=== PATIENT | female | born 1960 | race Caucasian/White ===

== ENCOUNTER 2024-10-12 08:58 | Outpatient (AMB) | payer MEDICARE, SELFPAY ==
--- NOTE | 2024-10-12 09:01 | A.OFFVIS_ITS ---
Vital Signs 10/12/24 09:03 Height 5 ft 7 in Weight 186 lb 2 oz BMI 29.1 BP 128/76 Blood Pressure Location Lt brachial Position Sitting Pulse 81 Pulse Source Pulse Oximeter Pulse Oximetry (%) 99 Oxygen Delivery Method Room Air Intake Visit Reasons: ENP - Snoring Intake Note: Patient presents to the office today as a new patient visit for snoring. Pt states she is overall feeling well. Allergies No Known Allergies Allergy (Verified 10/12/24 09:04) HPI Comments Details: 64 year old female referred to us by Virginia Shields her pcp's office for an evaluation of sleep apnea She had a visiting nurse come into the home and noticed she had an abnormal heart rate, in the 50s. Goes to bed at 11pm wakes up at 7am with 2 bathroom breaks. She had an EKG, and 24hour holter monitor over night, and both normal. She snores at night per and has a difficult time falling asleep, will take a benadryl with tylenol. She also takes zyrtec for allergies, with very dry eyes has to put eye drops in when she wakes up for the bathroom. Bruxism, has a mouth gaurd that is old. L. knee pain, tried pt, cortisone shots and now pending consult for TKR. Knees get frozen and will feel immobile. Lumbar pain due to L4/L5 fracture, she sees a chiropractor. Denies parasomnias. RLS symptoms denies. Morning headaches denies. Memory is stable, will occasionally forgets names, has to write everything down. Mood is stable, her mom passed recently. She does not smoke, has alcohol occasionally and her diet is stable. She has started biking 5-10 min daily. HST and Labs 3 month f/u Left eye line and flashes with floaters, 3x a week, during the day can last 1hour, eyes feel gritty, tear mildly, irritable pain. [facility] Medical History Hypothyroidism (acquired) Arthritis of knee Asthma Actinic keratosis Alopecia areata Age related osteoporosis Herpes simplex antibody positive Anorectal polyp Subclinical hypothyroidism Hypercholesteremia Hemorrhoid Surgical History History of radial keratotomy H/O knee surgery H/O colonoscopy H/O breast biopsy Family History Mother Breast cancer Diabetes mellitus HTN (hypertension) Afib NICKY (obstructive sleep apnea) Cataract Osteoporosis SCC (spinal cord compression) Dementia Father Stroke NICKY (obstructive sleep apnea) Tumor, thyroid Glioblastoma Sister SCC (spinal cord compression) Thyroid disease Brother HTN (hypertension) Maternal Grandfather Lung cancer Paternal Grandmother Stroke Paternal Grandfather Kidney disease Maternal Aunt Colon cancer COPD (chronic obstructive pulmonary disease) Maternal Uncle Lung cancer Social History Alcohol intake: current Patient Tobacco Use Status: Never used Tobacco e-Cigarette/Vaping Use: Never Used Physical Exam Vital Signs: Last Vital Signs Pulse 81 10/12/24 09:03 BP 128/76 10/12/24 09:03 Pulse Ox 99 10/12/24 09:03 Oxygen Delivery Method Room Air 10/12/24 09:03 BMI result Body Mass Index 29.1 Const General: cooperative, comfortable and no acute distress Nutritional Appearance: overweight Orientation/consciousness: patient oriented x3 HEENT Face and sinus: Yes face symmetric Throat: Yes other ([place] score is 3) Eyes Pupils: Equal, round and reactive pupils present Neck Neck: Yes full ROM Resp Effort & Inspection: normal respiratory effort and able to speak in complete sentences Neuro Other: mild tremors UE L>R, / speech is mumbled, due to large tongue per patient General: patient oriented x3 and moves all extremities Cranial nerves: Yes Facial sensation intact/muscles of mastication intact, Yes Equal, round and reactive pupils present, Yes Normal accommodation reflex present, Yes Normal facial strength present, Yes Midline tongue present, Yes Ability to bilaterally rotate head present and Yes Ability to bilaterally elevate shoulders present Cognition (Neuro): normal cognition Gait exam (Neuro): Normal gait present Motor exam (neuro): 5/5 motor strength present throughout (Upper extremity ) and Abnormal muscle tone present (Lower Extremity 4/5 L. Extremity 3/5) Deep tendon reflexes (DTR's): Right triceps reflex intensity grade: 2+, Left triceps reflex intensity grade: 2+, Rt Biceps (C5, C6): 2+, Left biceps reflex intensity grade: 2+, Right brachioradialis reflex intensity grade: 2+, Left brachioradialis reflex intensity grade: 2+, Right patellar reflex intensity grade: 2+, Left patellar reflex intensity grade: 2+, Right ankle reflex intensity grade: 2+ and Left ankle reflex intensity grade: 2+ Psych Appearance: grossly normal Affect: normal affect Thought process: Normal thought process present Thought content: Normal thought content present Results Reviewed Results Reviewed: Labs request from [facility] in [place]. Assessment & Plan Assessment & Plan (1) Excessive daytime sleepiness: Code(s): G47.19 - Other hypersomnia Category: Medical (2) Difficulty falling asleep at night until annual giving director hours: Code(s): G47.00 - Insomnia, unspecified Category: Medical (3) Bruxism (teeth grinding): Code(s): F45.8 - Other somatoform disorders Category: Medical (4) Abnormal heart rate: Code(s): R00.9 - Unspecified abnormalities of heart beat Category: Medical Plan HST to r/o nicky Labs for excessive daytime fatigue Difficulty falling asleep discussed strategies for sleep onset, and sleep hygiene. Encouraged patient to stop benadryl otc, dries her eyes, and causes tearing. Start Ramelteon 8mg PO daily at night. Continue Melatonin 3mg -6mg po daily at night 3 hours prior to sleep. F/u in 3 months Orders: Orders RT home sleep study Today G47.19 - Other hypersomnia Ferritin Today G47.19 - Other hypersomnia Homocysteine Today G47.19 - Other hypersomnia, G47.9 - Sleep disorder, unspecified, R53.83 - Other fatigue Complete Blood Count no Diff Today G47.19 - Other hypersomnia Comprehensive Met. Panel Today G47.19 - Other hypersomnia Hemoglobin A1c Today G47.19 - Other hypersomnia Methylmalonic Acid Today G47.19 - Other hypersomnia, G47.9 - Sleep disorder, unspecified, R53.83 - Other fatigue Vitamin D 25-OH Total Today G47.19 - Other hypersomnia Vitamin B12 and Folate Today G47.19 - Other hypersomnia TSH reflex Free T4 Today G47.19 - Other hypersomnia Medications: New ramelteon (Rozerem) 8mg po daily at bedtime. 8 mg PO BEDTIME 90 tabs 3RF sleep difficulties 3 months MDD 8mg G47.00 - Insomnia, unspecified Patient Instructions: Sleep Hygiene provided: set a scheduled bedtime and wake time to help regulate the circadian rhythm and balance the release of pituitary hormones. Sleep in a dark room, temperatures below 68 degrees, and no devices n bed. Limit caffeinated products 6 hours prior to bed, and limit fluids 2-4 hours prior to bed. Gentle night yoga, diffusing essential oils, and playing soft music can be relaxing. Coding Level of Care Code New Pt Level 4 (69945) Diagnoses Excessive daytime sleepiness G47.19 Difficulty falling asleep at night until annual giving director hours G47.00 Bruxism (teeth grinding) F45.8 Abnormal heart rate R00.9 Time Spent (min) 30 Comment evaluation Sleep Questionnaire Difficulty falling asleep: Yes (benadryl) Difficulty staying asleep?: No Number of arousals: 2 Snoring: Yes Witnessed apneas: No Gasping arousals: Yes Nocturia: No GERD: No Vivid dreams: Yes Acting out dreams: No Abnormal behavior in sleep: No Abnormal movements in sleep: No Morning headaches: Yes Excessive daytime sleepiness: No Daytime naps: Yes (1-2 /week, doze <10 min) Restless legs: No
[2024-10-12 09:03] VITALS: BP 128/76; PULSE 81; O2SAT 99; BMI 29.1
== END 2024-10-12 10:05 | disposition home or self-care (01) ==
LOC: HO.HSMS 08:59
PROVIDERS: PCP Internal Medicine; Visit Provider Physician Assistant Medical
DX: G47.19 Other hypersomnia (principal); G47.00 Insomnia, unspecified; F45.8 Other somatoform disorders; R00.9 Unspecified abnormalities of heart beat
CPT/HCPCS: 99204

== ENCOUNTER → 2024-10-12 08:58 | Outpatient (BNVA) | payer MEDICARE, SELFPAY | PROVIDERS: PCP Internal Medicine; Visit Provider Physician Assistant Medical | DX: F45.8 Other somatoform disorders (principal); R00.9 Unspecified abnormalities of heart beat; G47.00 Insomnia, unspecified; G47.19 Other hypersomnia | CPT/HCPCS: 99202 ==

== ENCOUNTER 2024-10-19 09:15 | Outpatient (REF) | payer MEDICARE, SELFPAY ==
--- OUTSIDE RECORDS SUMMARY | 2024-10-19 09:32 | XMS_ITS | Clinical Summary ---
Author Organization [facility] Address [address] [place] [address] Phone Care Team Providers Care Car Deliverer Name Role Phone Mahogany Molina MD Primary Care Provider [phone] Allergies No known active allergies Medications aspirin 81 mg EC tablet Take 1 tablet (81 mg total) by mouth 1 (one) time each day. Active vitamin B complex (VITAMINS B COMPLEX ORAL) Take by mouth 1 (one) time each day. Active calcium carbonate-vitami n D3 600 mg-10 mcg (400 unit) capsule Take by mouth 1 (one) time each day. Active cetirizine (ZyrTEC) 10 mg tablet Take 1 tablet (10 mg total) by mouth 1 (one) time each day. Active fluticasone propionate (FLONASE) 50 mcg/actuation nasal spray Administer 1 spray into each nostril 2 (two) times a day if needed for rhinitis or allergies. 2 Active glucosamine/sarah beth droitin/C/Juwan (GLUCOSAMINE 1500 COMPLEX ORAL) Take 1 tablet by mouth 1 (one) time each day. Active MAGNESIUM ORAL Take by mouth 1 (one) time each day. Active meloxicam (MOBIC) 15 mg tablet Take 1 tablet (15 mg total) by mouth 1 (one) time each day. 3 Active multivitamin (MULTIPLE VITAMINS ORAL) Take by mouth 1 (one) time each day. 8 Active omega-3 acid ethyl esters (LOVAZA) 1 gram capsule Take 1 capsule (1 g total) by mouth 1 (one) time each day. Active Lactobacillus acidophilus (Probiotic) 10 billion cell capsule Take by mouth 1 (one) time each day. Active valACYclovir (VALTREX) 1 gram tablet TAKE 2 TABLETS BY MOUTH 2 TIMES DAILY FOR 1 DAY ONLY 4 Active atorvastatin (LIPITOR) 10 mg tablet Take 1 tablet (10 mg total) by mouth 1 (one) time each day. 90 tablet 3 5 Active levothyroxine (SYNTHROID, LEVOTHROID) 25 mcg tablet Take 1.5 tablets (37.5 mcg total) by mouth 1 (one) time each day before breakfast. 135 tablet 3 5 Active omeprazole (PriLOSEC) [address] capsule Take 1 capsule (20 mg total) by mouth 1 (one) time each day. 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 Subclinical hypothyroidism 02/20/2023 Assessment & Plan (04/22/2024 11:48 AM EST): Orders: Thyroid stimulating hormone; Future Overweight (BMI 25.0-29.9) 05/02/2021 Osteoporosis 05/02/2021 Assessment & Plan (04/22/2024 11:48 AM EST): Orders: Basic metabolic panel; Future BD Bone Density DXA Axial Skeleton; Future Asthma 11/01/2015 Actinic keratosis 01/31/2015 Overview (01/06/2024): Actinic keratosis Hemorrhoids, external 09/27/2010 Alopecia areata 08/21/2008 Hypercholesteremia 08/02/2007 Assessment & Plan (04/22/2024 11:48 AM EST): Orders: Lipid panel with reflex to direct LDL; Future Herpes simplex virus (HSV) infection 05/05/2005 Overview (01/06/2024): IMO update Anorectal polyp 05/02/2005 Overview (01/06/2024): tubular adenoma 1998. Neg CN 2004 and 2011. Next exam indicated 2021. IMO update Encounters Date Type Department Care Team Description 09/05/2024 8:30 AM EDT Ancillary Procedure [facility] [address] [place] [address] Irregular cardiac rhythm; Snoring 08/18/2024 1:00 PM EDT Office Visit Adult Medicine [address] [address] Virginia Montiel PA Irregular cardiac rhythm (Primary Dx); Snoring from Last 3 Months Immunizations Name Administration Dates Next Due Influenza Quadravalent, MDCK , 0.5ml, preservative free (Flucelvax) 6mo and older 01/10/2019,01/15/2018,01/18/2017 Influenza trivalent, 0.5mL, preservative free (Fluarix; FluLaval; Fluzone) ages 6mo and older (Afluria) 3 years and older 12/30/2023,02/04/2022,01/15/2018,01/25 Influenza trivalent, with pr eservative (Fluzone; Afluria) 6mo and older 01/19/2023,01/03/2020,01/17/2015,12/31,01/27/2007 [employer] SARS-CoV-2 COVID-19, mRNA, LNP-S, preservative free 07/25/2021 Pneumococcal conjugate 20 va lent (Prevnar 20, PCV 20) 2mo and older 04/16/2024 Pneumococcal polysaccharide 23 valent (Pneumovax 23) 2yo and older 12/26/2015 RSV, bivalent, protein subun it RSVpreF, 0.5mL, Preservative Free (ABRYSVO) 60yo and older or 32 through 36 wks of 02/15/2024 Td Tetanus diptheria (Tdvax) 7yo and older 03/16/2017,06/18/1996 Tdap Tetanus diptheria acell ular pertussis (Boostrix; Adacel) 7yo and older 07/24/2006 Zoster recombinant (Shingrix ) 19yo and older 09/14/2018,05/18/2018 Surgical History Surgery Date Site/Laterality Comments COLONOSCOPY W/ BIOPSIES 08/08/1998 single diminutive rectal tubular adenoma COLONOSCOPY 12/12/2011 : no polyps OTHER SURGICAL HISTORY RADIAL KERATOTOMY KNEE SURGERY 02/2013 Left : meniscus repair BREAST BIOPSY 2000ish Right rt brst b9 BREAST BIOPSY Right benign COLONOSCOPY 08/05/2004 no polyps Medical History Medical History Date Comments Anal and rectal polyp 05/02/2005 tubular ad enoma Herpes simplex without mention of complication 0 05/05/2005 Hypercholesteremia 08/02/2007 Alopecia areata 08/21/2008 Actinic keratosis, hx of Wheezing 11/01/2015 Osteoporosis 03/2021 Arthritis of knee Hypothyroidism 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 Family History Medical History Relation Name Comments Colon cancer Aunt maternal COPD Hypertension Brother x 2 HLD Hyperthyroidism Daughter Stroke Father heart conditio n , NICKY, glioblastoma, thyroid tumor Lung cancer Maternal Grandfather Breast cancer Mother DM, HTN, AFIB, NICKY, cataract, osteoporosis, SCC, dementia Other: kidney disease Paternal Grandfather Stroke Paternal Grandmother Thyroid disease Sister x 2 SCC Lung cancer Uncle maternal Relation Name Status Comments Aunt maternal Brother x 2 Alive Daughter Father Maternal Grandfather Maternal Grandmother Mother Paternal Grandfather Paternal Grandmother Sister x 2 Alive Uncle maternal Social History Tobacco Use Types Packs/Day Years Used Date Smoking Tobacco: Never Smokeless Tobacco: Never Tobacco Cessation:Counseling Given: Not Answered Alcohol Use Standard Drinks/Week Comments Yes 2 (1 standard drink = 0.6 oz pur e alcohol) Housing Instability Answer Date Recorde d Are you worried that in the next 2 months you may not have stable housing? No 06/24/2024 Food Access & Nutrition Answer Date Rec orded Do you have access to a vari ety of food including fruits and vegetables? Yes 06/24/2024 Access to Healthcare Answer Date Record ed Within the last 3 months, ho w many times did you visit the emergency department for your medical care? 0 06/24/2024 Health Literacy Answer Date Recorded How often do you need to hav e someone help you when you read instructions, pamphlets, or other written material from your doctor or pharmacy? Never 06/24/2024 Caregiver: How often do you need to have someone help you when you read instructions, pamphlets, or other written material from your doctor or pharmacy? Not on file 06/24/2024 Financial Risk Answer Date Recorded How hard is it for you to pa y for the very basics like food, housing, medical care, and air conditioning / heating? Not very hard 06/24/2024 Transportation Answer Date Recorded Has the lack of transportati on kept you from meetings, work, or from getting things needed for daily living? No Has the lack of transportati on kept you from medical appointments or from getting medications? No 06/24/2024 Social Isolation Answer Date Recorded How often do you feel lonely or isolated from th ose around you? Never 06/24/2024 Food Risk Answer Date Recorded Within the past 12 months we worried whether our food would run out before we got money to buy more. Never true 06/24/2024 Within the past 12 months th e food we bought just didn't last and we didn't have money to get more. Never true 06/24/2024 Dependent Care Answer Date Recorded Do you need help finding or paying for care for your loved ones. For example, director child or elderly care for an older adult? No 06/24/2024 Education Answer Date Recorded Do you think completing more education or training, like finishing a GED, going to college, or learning a trade, would be helpful for you? No 06/24/2024 Employment and Income Answer Date Recor ded During the last four weeks, have you been actively looking for work? No 06/24/2024 Living Situation Answer Date Recorded What is your living situation? 0 06/24/2024 Comments No Sex and Gender Information Value Date Recorded Sex Assigned at Not on file Legal Sex Female 8:59 PM EST Gender Identity Not on file Sexual Orientation Not on file Obstetrics History Para Term AB IAB SAB Ectopic Multiple Livin g Live Births 1 1 1 1 1 Date Outcome GA Total Labor Labor/2nd/3rd Weight Sex Type Anes PTL Larisa A1 A5 Name Clin Term 40w 0d Vag-S pont None Living Delivery Location:[facility] Last Filed Vital Signs Vital Sign Reading Time Taken Comments Blood Pressure 104/76 08/18/2024 12:58 PM EDT Pulse 74 08/18/2024 12:58 PM EDT Temperature 36.3 C (97.3 F) 08/18/2024 12:58 PM EDT Respiratory Rate 14 08/18/2024 12:58 PM EDT Oxygen Saturation 98% 08/18/2024 12:58 PM EDT Inhaled Oxygen Concentration - - Weight 83.9 kg (185 lb) 08/18/2024 12:58 PM EDT Height 170.2 cm (5' 7 ) 08/18/2024 12:58 PM EDT Body Mass Index 28.98 08/18/2024 12:58 PM EDT Plan of Treatment Upcoming Encounters Date Type Department Care Team (Late st Contact Info) Description 10/27/2024 2:15 PM EDT Office Visit Adult Medicine [facility] [address] [place] [address] Mahogany Molina MD [address] [place] [address] Health Maintenance Due Date Last Done Comments Cervical Cancer Screening: Pap Smear 01/18/2024 01/17/2021 COVID-19 Vaccine (8 - Pfizer risk 2023- season) 2024 01/12/2024, 01/07/2023, 01/20/2022, Additional history exists Influenza Vaccine (#1) 2024 , 01/19/2023, 02/04/2022, Additional history exists Falls Risk Assessment 04/22/2025 04/22/2024 Medicare Annual Wellness Visit 04/22/2025 04/22/2024 Depression Screening 06/24/2025 06/24/2024 Social Influencers of Health Screening 06/24/2025 06/24/2024 Breast Cancer Screening 04/29/2026 04/29/19, 04/27/2023, 03/25/2022, Additional history exists DTaP,Tdap,and Td Vaccines (4 - Td or Tdap) 03/16/2027 03/16/2017, 07/24/2006, 06/18/1996 Colorectal Cancer Screening: Colonoscopy 03/20/2027 03/20/2022 Cholesterol Screening (Lipid Panel) 04/26/2029 04/26/2024, 07/09/2023 Osteoporosis Screening (Bone Density Screening) 05/10/2034 05/10/2024, 05/20/2022, 03/28/2021 Hepatitis C Screening Addressed 12/21/2012 Overri dden with the intention of not completing the topic Zoster Vaccines Completed 09/14/2018, 05/18/2018 RSV Immunization Adult Patients Completed 02/15/2024 Pneumococcal Vaccine: 50+ Years Completed 04/16/2024, 12/26/2015 Pneumococcal Vaccine: Pediatrics (0 to 5 Years) and At-Risk Patients (6 to 64 Years) Completed 04/16/2024, 12/26/2015 HIB Vaccines Aged Out No longer eligi ble based on patient's age to complete this topic HPV Vaccines Aged Out No longer eligi ble based on patient's age to complete this topic Hepatitis A Vaccines Aged Out No long er eligible based on patient's age to complete this topic Hepatitis B Vaccines Aged Out No long er eligible based on patient's age to complete this topic IPV Vaccines Aged Out No longer eligi ble based on patient's age to complete this topic MMR Vaccines Aged Out No longer eligi ble based on patient's age to complete this topic Meningococcal ACWY Vaccine Aged Out N o longer eligible based on patient's age to complete this topic Meningococcal B Vaccine Aged Out No l onger eligible based on patient's age to complete this topic RSV Immunization Patients Under 20 months Aged Out No longer eligible based on patient's age to complete this topic Varicella Vaccines Aged Out No longer eligible based on patient's age to complete this topic Procedures Procedure Name Priority Date/Time Associated Diagnosis Comments CARDIAC HOLTER MONITOR (REPORT GENERATED IN HOUSE) Routine 09/05/2024 8:20 AM EDT Irregular cardiac rhythm Snoring ECG 12-LEAD Routine 08/18/2024 4:34 PM EDT Irregular cardiac rhythm BD BONE DENSITY DXA AXIAL SKELETON Routine 05/10/2024 9:09 AM EST Osteoporosis, unspecified osteoporosis type, unspecified pathological fracture presence MG MAMMO DIGITAL SCREENING W TONY BILAT Routine 04/29/2024 9:01 AM EST Encounter for screening mammogram for breast cancer LIPID PANEL WITH REFLEX TO DIRECT LDL Routine 04/26/2024 7:50 AM EST Hypercholesteremia PAP SMEAR Routine 01/17/2021 from Last 3 Months or Most Recently Relevant to Health Maintenance Results * CARDIAC HOLTER MONITOR (REPORT GENERATED IN HOUSE) (09/05/2024 8:20 AM EDT) Anatomical Region Laterality Modality Cardiac Diagnost ic Narrative 09/06/2024 3:02 PM EDT Unremarkable Holter monitor [facility]ST[facility]ING DEPARTMENT [address] [facility], [address] [address] TEL: FAX: Type of test: 24 hour Holter Monitor Date of test: 09/05/24 Ordering provider: ASHLEY Jensen Reason for Test: Irregular Rhythm [employer] Findings: 1: Normal Sinus Rhythm. 2: Rare PACs with one atrial pair. Rare PVCs. 3: No pauses noted. Longest R-R 1.2 sec. 4: Diary returned with no symptoms noted. Impression: Normal sinus rhythm with no significant arrhythmias or bradycardia noted. us Virginia RAMIREZ [facility] PROCEDURE S Final Result * ECG 12 lead (08/18/2024 4:34 PM EDT) us Virginia RAMIERZ ECG ORDERABLES Final Result * BD Bone Density DXA Axial Skeleton (05/10/2024 9:09 AM EST) Anatomical Region Laterality Modality Wrist, Hip, L-spine Bone Densito metry 05/11/2024 12:0 4 PM EST Impressions 05/11/2024 12:05 PM EST 1. Osteopenia. 2. FRAX analysis yields a 10-year probability of major osteoporotic fracture of 18.7% and a 10-year probability of hip fracture of 1.5%. Code 43031 -------- FINAL REPORT -------- Dictated By: Herb Iniguez Dictated Date: 05/11/2024 12:04 ET Assigned Physician: Herb Iniguez Reviewed and Electronically Signed By: Herb Iniguez Signed Date: 05/11/2024 12:05 ET Workstation ID: [id number] Transcribed By: Self Edit Transcribed Date: 05/11/2024 12:04 ET Narrative 05/11/2024 12:05 PM EST HISTORY: The patient is a 64-year-old postmenopausal female with clinical concern for metabolic bone disease. FINDINGS: Dual energy x-ray absorptiometry of the lumbar spine and femurs is performed. The mean bone mineral density at L1-L4 is 0.898 gm/cm2 which is 76% of that of young normals and 83% of that of age matched controls. This yields a T-score of -2.3 and a Z-score of -1.5 which is diagnostic of osteopenia. The mean bone mineral density of the femurs bilaterally is 0.857 gm/cm2 which is 85% of that of young normals and 93% of that of age matched controls. This yields a T-score of -1.2 and a Z-score of -0.5 which is diagnostic of osteopenia. Procedure Note Herb Iniguez MD - 05/11/2024 HISTORY: The patient is a 64-year-old postmenopausal female with clinicalconcern for metabolic bone disease. FINDINGS: Dual energy x-ray absorptiometry of the lumbar spine and femursis performed. The mean bone mineral density at L1-L4 is 0.898 gm/cm2 whichis 76% of that of young normals and 83% of that of age matched controls.This yields a T-score of -2.3 and a Z-score of -1.5 which is diagnostic ofosteopenia. The mean bone mineral density of the femurs bilaterally is 0.857 gm/bd5wzrut is 85% of that of young normals and 93% of that of age matchedcontrols. This yields a T-score of -1.2 and a Z-score of -0.5 which isdiagnostic of osteopenia. IMPRESSION: 1. Osteopenia. 2. FRAX analysis yields a 10-year probability of major osteoporoticfracture of 18.7% and a 10-year probability of hip fracture of 1.5%. Code 92673 -------- FINAL REPORT -------- Dictated By: Herb Iniguez Dictated Date: 05/11/2024 12:04 ET Assigned Physician: Herb Iniguez Reviewed and Electronically Signed By: Herb Iniguez Signed Date: 05/11/2024 12:05 ET Workstation ID: [id number] Transcribed By: Self Edit Transcribed Date: 05/11/2024 12:04 ET us Mahogany Molina MD IMG DXA PROCEDURES Final Result * MG Mammo Digital Screening w Tony bilat (04/29/2024 9:01 AM EST) Anatomical Region Laterality Modality Breast Bilateral Mammography 04/29/2024 9:13 AM EST Impressions 04/29/2024 9:18 AM EST No mammographic evidence of malignancy. A negative mammogram in the presence of a clinically suspicious palpable abnormality does not preclude the possibility of malignancy or alter the indications for biopsy. PQRI CPT II 3342F Code 07210, 69306 PQRI 225 CPT II 7025F TISSUE DENSITY: There are scattered areas of fibroglandular density. (BI-RADS category B) IMPRESSION: Benign. BI-RADS CATEGORY: 2 - BENIGN RECOMMENDATION: Screening bilateral mammogram is recommended in 1 year. Mammo Location: [facility], [address] [place] [address] -------- FINAL REPORT -------- Dictated By: Herb Iniguez Dictated Date: 04/29/2024 09:13 ET Assigned Physician: Herb Iniguez Reviewed and Electronically Signed By: Herb Iniguez Signed Date: 04/29/2024 09:18 ET Workstation ID: [id number] Transcribed By: Self Edit Transcribed Date: 04/29/2024 09:13 ET Narrative 04/29/2024 9:18 AM EST CLINICAL: The patient is a 64 years Female presenting for routine screening mammography. COMPARISON: Most recently 04/27/2023 and most remotely 03/11/2017. TECHNIQUE: Full-field digital mammography of the breasts bilaterally consisting of tomosynthesis in MLO and CC projection is performed in the [employer] 2000-D unit. Computer aided detection utilizing the iCAD system was utilized. FINDINGS: The breasts are again seen to be composed of a combination of fatty and fibroglandular elements. A tissue marker is again present laterally in the right breast. A small group of smoothly marginated calcifications centrally in the left breast are stable and are therefore again regarded as being benign. There is no suspicious cluster of microcalcifications, mass, or area of architectural distortion. There is no skin thickening or nipple retraction. Procedure Note Herb Iniguez MD - 04/29/2024 CLINICAL: The patient is a 64 years Female presenting for routinescreening mammography. COMPARISON: Most recently 04/27/2023 and most remotely 03/11/2017. TECHNIQUE: Full-field digital mammography of the breasts bilaterallyconsisting of tomosynthesis in MLO and CC projection is performed in the[employer] 2000-D unit. Computer aided detection utilizing the [employer] was utilized. FINDINGS: The breasts are again seen to be composed of a combination offatty and fibroglandular elements. A tissue marker is again presentlaterally in the right breast. A small group of smoothly marginatedcalcifications centrally in the left breast are stable and are thereforeagain regarded as being benign. There is no suspicious cluster ofmicrocalcifications, mass, or area of architectural distortion. There isno skin thickening or nipple retraction. IMPRESSION: No mammographic evidence of malignancy. A negative mammogram in the presence of a clinically suspicious palpableabnormality does not preclude the possibility of malignancy or alter theindications for biopsy. PQRI CPT II 3342F Code 21125, 67946 PQRI 225 CPT II 7025F TISSUE DENSITY: There are scattered areas of fibroglandular density.(BI-RADS category B) IMPRESSION: Benign. BI-RADS CATEGORY: 2 - BENIGN RECOMMENDATION: Screening bilateral mammogram is recommended in 1 year. Mammo Location: [facility], [facility], [address] [place] [id number] -------- FINAL REPORT -------- Dictated By: Herb Iniguez Dictated Date: 04/29/2024 09:13 ET Assigned Physician: Herb Iniguez Reviewed and Electronically Signed By: Herb Iniguez Signed Date: 04/29/2024 09:18 ET Workstation ID: [id number] Transcribed By: Self Edit Transcribed Date: 04/29/2024 09:13 ET us Self Referral Sppl IMG BI PROCEDURES Final Resul t * (ABNORMAL) Lipid panel with reflex to direct LDL (04/26/2024 7:50 AM EST) Cholesterol 212(H) 0 - 200 mg/dL LAB CHEMISTRY METHOD 04/26/2024 10:34 AM EST [facility] Triglycerides 103 0 - 150 mg/dL LAB CHEMISTRY METHOD 04/26/2024 10:34 AM EST [facility] HDL 66 >=40 mg/dL LAB CHEMISTRY METHOD 04/26/2024 10:34 AM EST [facility] LDL Calculated 125(H) 0 - 100 mg/dL LAB CHEMISTRY METHOD 04/26/2024 10:34 AM EST [facility] VLDL Cholesterol Seng 20.6 mg/dL LAB CHEMISTRY METHOD 04/26/2024 10:34 AM EST [facility] Non HDL Chol. (LDL+VLDL) 146(H) <145 mg/dL LAB CHEMISTRY METHOD 04/26/2024 10:34 AM EST [facility] Chol/HDL Ratio 3.2 0.0 - 4.4 LAB CHEMISTRY METHOD 04/26/2024 10:34 AM EST [facility] Blood Venous blood specimen / Unknown Venipuncture / Unknown 04/26/2024 7:50 AM EST 04/26/2024 7:50 AM EST us Mahogany Molina MD LAB BLOOD ORDERABLES Final Resul t [facility] [address] [place] [address], * Pap smear (01/17/2021) 01/17/2021 Narrative HISTORICAL TESTING LAB RESULTING AGENCY - 01/31/2021 1:20 PM EDT [id number] THINPREP PAP, IMAGED: NEGATIVE FOR SQUAMOUS INTRAEPITHELIAL LESION AND MALIGNANCY . ATROPHY. ESA SZYMANSKI(ASCP) (CASE ELECTRONICALLY SIGNED 01 31 2021) RESULT OF APTIMA HIGH RISK HPV ASSAY: HIGH RISK HPV: NEGATIVE (SEROTYPES 16,18,31,33,35,39,45,51,52,56,58,59,66,68) COMPLETED ON 2021-01-22 ADEQUACY: SATISFACTORY ENDOCERVICAL/TRANSFORMATION ZONE COMPONENT PRESENT. SOURCE: THINPREP PAP HPV ANY DX: REFLEX 16 AND 18, CERVICAL, IMAGED CLINICAL INFORMATION: HPV ANY DIAGNOSIS. LMP 10/14/11, Z12.4 May Catalan [facility] CYTOLOGY ORDERABLES Final Result HISTORICAL TESTING LAB RESULTING AGENCY from Last 3 Months or Most Recently Relevant to [place] [id number] [employer] MEDICARE ADVANTAGE Care Teams Car Deliverer Relationship Specialty Start Date End Date Mahogany Molina MD [address] [place] [address] [place] [id number] PCP - General 07/25/99
--- OUTSIDE RECORDS SUMMARY | 2024-10-19 09:32 | XMS_ITS | Continuity of Care Document ---
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 Plan of Treatment Reminders Order Date Submit Date Provider Last Modified By Organization Details Last Modified Time Details Appointments NEW PATIENT 15 2024 05:30P M Brayden Benitez MD Not available Not available Not available Lab None recorded . Referral None recorded . Procedures None recorded . Surgeries None recorded . Imaging None recorded . Medication Orders None recorded . Patient TargetsNo targets recorded. Patient InstructionsNo instructions recorded. Reason for Referral None Reported. Problems Name Problem SNOMED Code Status Onset Date Resolution Date Notes Provider Name and Address Organization Details Recorded Time No complaints 401381861 Active Status : 'I'; Not Available [facility] 4 09:19:30 Localized, primary osteoarthr itis of the ankle and/or foot 347567896 Active 2023 Papo Camarillo MD [address], [place], [address] , [facility] 4 13:21:10 Pain of knee region 5307084347 Active 2024 Adalgisa Foy PA-C [address], [place], [address] , [facility] 5 15:52:53 Osteoarthr itis of left knee joint 3491861034810 09 Active 2024 darin umana [facility] 5 12:30:11 Osteoarthr itis of right knee joint 8626636617621 00 Active 2024 Deidre Juan PA-C [address], [place], [address] , [facility] 5 15:16:05 Acute meniscal tear, medial 619841279 Active 2024 Deidre Juan PA-C [address], [place], [address] , [facility] 5 13:33:07 Pain of left knee region 6540744629951 09 [facility] 4 10:26:35 Problem Notes None recorded. Procedures Surgical History Date Name Laterality Status Provider Name and Address Organization Details Recorded Time 5 Knee Kenalog 1cc L/R completed Deidre Juan PA-C [address] [facility], [place], [address], [facility] 08/26/2024 13:18:34 5 Durolane Knee Injection completed Deidre Juan PA-C [address] [facility], [place], [address], [facility] 05/11/2024 21:47:26 4 Sports Knee 4&1 completed Violet Arreguin PA-C [address] [facility], [place], [address], [facility] 01/25/2024 09:03:24 3 Orthopedic [facility] completed [facility] 10/18/2024 08:28:40 3 Knee Surgery completed [facility] 10/18/2024 08:43:44 Imaging Results None recorded. Procedure Notes None recorded. Medical Equipment None Reported. Allergies No known drug allergies Medications Name Sig Start Date Stop Date Status Note LastModified by Organization Details LastModified Time atorvastati n 10 mg tablet TAKE 1 TABLET BY MOUTH 1 TIME EACH DAY. active Not Available Not Available No t Available valacyclovi r 1 gram tablet TAKE 2 TABLETS BY MOUTH 2 TIMES DAILY FOR 1 DAY ONLY active Not Available Not Available No t Available meloxicam 15 mg tablet TAKE 1 TABLET BY MOUTH ONCE DAILY AFTER A MEAL. active Not Available Not Available No t Available bimatoprost 0.03 % eye drops APPLY TO EYELIDS ONCE NIGHTLY 08/26 completed Not Available Not Available Not Available doxycycline monohydrate 100 mg tablet TAKE 1 TABLET BY MOUTH TWICE A DAY FOR 10 DAYS 01/22 completed Not Available Not Available Not Available levothyroxi ne 25 mcg tablet TAKE 1 & 1/2 TABLETS BY MOUTH 1 (ONE) TIME EACH DAY BEFORE BREAKFAST . active Not Available Not Available No t Available pseudoephed rine-guaife nesin ER 80-700 mg tablet,exte nded release DO NOT DRIVE WHILE ON THIS MEDICATIO N 03/11 completed Statu s: 'Disc ontin ued'; Not Available Not Available Not Available omeprazole 20 mg capsule,del ayed release TAKE 1 CAPSULE BY MOUTH 1 TIME EACH DAY. active Not Available Not Available No t Available risedronate 35 mg tablet TAKE 1 TABLET BY MOUTH ONE TIME PER WEEK active Not Available Not Available No t Available CoQ-10 100 mg capsule Take by oral route. active Not Available Not Available No t Available Tirosint 37.5 mcg capsule TAKE 1 CAPSULE BY MOUTH EVERY DAY 01/22 completed Not Available Not Available Not Available Vitals Date Recorded Body height Provider Name an d Address Organization Details Last Updated DateTime 10/18/2024 170.18 cm Indexmelody [facility] 10/18/2024 08:50:40 Social History Question Answer Notes LastModified by Organizat ion Details LastModified Time Tobacco Smoking Status Never Smoker Indexmelody [place], [place] - [place] [facility] 10/18/2024 08:28:35 When Did You Quit Smoking? 16+yearssinc elastcigaret te [email or web address] Information not available 10/18/2024 What Is Your Relationship Status? [email or web address] Information not available 10/18/2024 How Many Years Have You Smoked Tobacco? 0 [email or web address] Information not available 10/18/2024 Sex: Unknown Functional Status Question Answer Note LastModified by Organizat ion Details LastModified Time How many times per week do you consume alcohol? 1-2 times per week [email or web address] Information not available 10/18/2024 Do you use any illicit or recreational drugs? No [email or web address] Information not available 10/18/2024 Do you or have you ever used any other forms of tobacco or nicotine? No [email or web address] Information not available 10/18/2024 Do you or have you ever used e-cigarettes or vape? Never used electronic cigarettes Information not available 10/18/2024 Mental Status None recorded. Family History Nothing Reported. Medical History Condition Response Allergies/Hayfever N Coronary Artery Disease N Anxiety/Depression N Breathing or lung disorders N Emphysema N Nerve Disorders N Thyroid Problems Y COPD N Pacemaker N Anemia N Kidney/Bladder Problems N Vascular Disease N Heart Trouble N Heart Attack (SD) N Gastrointestinal Disease N Cholesterol Y Diabetes N Autoimmune disease N Inflammatory Joint disease N Bleeding Disorder N Orthotics N Arthritis Y Seizures/Epilepsy N Blood Clot N AIDS/HIV N Congestive Heart Failure (CHF) N Acid Reflux (GERD) N Cancer N Stroke N Asthma N Circulation Problems N Peripheral Vascular Disease N Sleep Apnea N Hepatitis N Heart Disease N Rheumatoid Arthritis N Arrhythmia N Pulmonary Embolism N Headaches N Fibromyalgia N Hypertension N Osteoporosis Y Gynecological HistoryNo gynecological history recorded. Obstetrics History GPAL:G 0 P 0 0 0 0 Past Encounters Encounter ID Performer Location Encounter Start Date Encounter Closed Date Diagnosis/Indication Diagnosis SNOMED-CT Code Diagnosis ICD10 Code Diagnosis Note [id number] [facility] [address] [facility] [place] [address] 10/18/2024 08:33:57 10/18/2024 09:22:34 Osteoarthritis of right knee joint 4228234475 89006 M17.11 Osteoarthr itis of left knee joint 1742598851 63180 M17.12 Acute meni scal tear, medial 124885511 S83.231A Health Concerns Section Related Observation LastModified by Organization Detai ls LastModified Time None Recorded Concern Status LastModified by Organization Details LastModified Time None Recorded Payers Encounter Date Sequence Insurance Name Policy Number Policy Nunez Covered Member ID Nunez Member ID Guarantor Name 10/18/2024 1 [employer] (MEDICARE REPLACEMENT/ ADVANTAGE - PPO) [id number] Bernice Ruiz [id number] Bernice Ruiz Notes Date Note Type Note Provider Name and Address Organization Details Recorded Time 10/18/2024 text/html I am seeing the patient today under the supervision of Dr. Louise who was available but who did not see the patient. HPI: Bernice presents to the office today for a recheck of her knees. She has known osteoarthritis of bilateral knees with her left knee being end-stage osteoarthritis. She does not feel as if injection therapy has been helpful for her left knee. She has been trying to avoid a total knee arthroplasty but is now ready to discuss surgery. The pain in her right knee has decreased since her last visit. She continues to experience intermittent discomfort along the medial aspect, but it is not too painful. She had a cortisone injection which provided her with relief. She is here to review her recent right knee MRI. PMH/PSH/MEDS/ALL/FMH/S OC HX/ROS are reviewed in detail per my medical intake sheet. General Exam: Vital signs are as noted below Mental status: Alert and lucid. Normal insight, affect and grooming. 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 No spasticity or clonus noted. EXAMINATION: The patient is well appearing and in no apparent distress. Alert and oriented x3. Gait is antalgic. Right knee reveals no deformity upon inspection. No joint effusion, edema, erythema, ecchymosis, or lesions. Neurovascularly intact. Tenderness present along the medial joint line. ROM is from 0-125 degrees. No crepitus noted. Stability intact with anterior, posterior, and varus/valgus stress at both 0 and 30 degrees of flexion. Positive flexion pinch and Steinmann's. 5/5 strength. Calf/leg compartments soft and compressible. Left knee reveals varus deformity upon inspection. No joint effusion, edema, erythema, ecchymosis, or lesions. Neurovascularly intact. Tenderness present along the medial joint line. ROM is from 0-120 degrees. Crepitus noted. Stability intact with anterior, posterior, and varus/valgus stress at both 0 and 30 degrees of flexion. Positive flexion pinch. 5/5 strength. Calf/leg compartments soft and compressible. X-rays ordered, obtained and reviewed at [facility] previously include 4 views of bilateral knees. Images reveal severe end-stage osteoarthritis of the left medial compartment with [id number] articulation, subchondral sclerosis, and osteophyte formation. Degenerative changes are also present in the patellofemoral compartment. There is moderate osteoarthritis of the right medial compartment. No acute fracture or lesion. MRI of the right knee performed at [facility] on 09/02/2024 has been independently reviewed. Images reveal a horizontal tear of the posterior third of the medial meniscus extending to the junction the body with an adjacent para meniscal cyst. Mild tricompartmental degenerative changes. IMPRESSION: Left knee end-stage osteoarthritis, right knee medial meniscus tear and osteoarthritis PLAN: The MRI results have been reviewed with the patient along with conservative versus surgical treatment options. Fortunately her right knee pain has improved. She is aware that a cortisone injection can be repeated in the future if needed. We also discussed the possibility of undergoing a right knee arthroscopy and partial medial meniscectomy if her pain increases. She prefers to monitor her right knee pain. Regarding her left knee, she is aware that anything short of a left total knee arthroplasty will not provide her with extended relief. We reviewed the surgical procedure and postoperative recovery today. I will schedule her an appointment with Dr. Cadet to further discuss surgery and to plan for the procedure in December. All questions answered. Deidre Juan PA-C [address] [facility] [address], [place], [address], [facility] - [place] [facility] 10/18/2024 09:22:33 OBGyn Episode No OBEpisode recorded.
[2024-10-19 10:36] LABS: Hematocrit 35.3 % (37.0-47.0); Hemoglobin 12.0 g/dl (12.0-16.0); Mean Corpuscular HGB Conc 34.0 g/dl (31.0-35.0); Mean Corpuscular Hemoglobin 31.3 pg (27.0-33.0); Mean Corpuscular Volume 91.9 fL (80.0-98.0); NRBC Abs Auto 0.000 X10*3/uL (0.0-0.012); NRBC Pct Auto 0.0 /100WBC (0.0-0.2); Platelet Count 209 X10*3/uL (160-400); Red Blood Count 3.84 X10*6/uL (4.20-5.50); White Blood Count 4.3 X10*3/uL (4.8-10.8)
[2024-10-19 10:43] LABS: Hemoglobin A1C 105.5623 umol/L; Total Hemoglobin (HGBA1C) 3245.4876 umol/L
[2024-10-19 11:07] LABS: Alanine Aminotransferase 38 U/L (0-31); Albumin Level 4.5 g/dL (3.5-5.0); Alkaline Phosphatase 51 U/L (39-117); Anion Gap 10 (12-20); Aspartate Amino Transferase 30 U/L (5-31); Blood Urea Nitrogen 24 mg/dL (9-16); Calcium 8.9 mg/dL (8.4-10.2); Carbon Dioxide 28 mmol/L (22-29); Chloride 106 mmol/L (96-108); Estimated Glomerular Filt Rate > 60; Potassium 4.2 mmol/L (3.3-5.1); Sodium 140 mmol/L (135-145); Total Protein 7.1 g/dL (6.5-8.0)
[2024-10-19 11:26] LABS: Ferritin 107 ng/mL (10-250)
[2024-10-19 11:28] LABS: Folate > 20.0 ng/mL (> or = 4.0); Vitamin B12 763 pg/mL (200-900)
== END 2024-10-19 09:16 | disposition home or self-care (01) ==
LOC: HO.LAB 09:15
PROVIDERS: PCP Internal Medicine; Visit Provider Physician Assistant Medical
DX: G47.19 Other hypersomnia (principal); R53.83 Other fatigue; G47.9 Sleep disorder, unspecified
CPT/HCPCS: 36415; 80053; 82306; 82607; 82728; 82746; 83036; 83090; 83921; 84443; 85027

== ENCOUNTER 2025-01-14 09:44 | Emergency (ER) | payer MEDICARE, SELFPAY ==
--- NOTE | ~2025-01-14 | XR_ITS ---
CLINICAL HISTORY: left arm numbness 3 views cervical spine Comparison: None provided Findings: Straightening of the normal lordosis is either due to muscle spasm or positioning. Satisfactory vertebral body alignment. No acute fractures or dislocation. Moderate disc space narrowing C5-6 and C6-7. Probable disc annulus calcifications at these levels. Moderate facet degenerative changes. Prevertebral soft tissues within normal limits. IMPRESSION: 1. No acute fracture in the cervical spine. 2. Moderate degenerative changes. This document has been electronically signed by: Tawanna Weinstein DO on 01/14/2025 13:18:07
--- NOTE | ~2025-01-14 | XR_ITS ---
CLINICAL HISTORY: low back pain, left leg numbness 3 views lumbar spine Comparison: None provided Findings: Straightening of the normal lordosis is either due to muscle spasm or positioning. Likely degenerative minimal grade 1 retrolisthesis L3 on L4. Diffuse osteopenia. Mild inferior compression deformity in T12. Mild superior endplate compression deformity in L3. Moderate multilevel disc space narrowing. Moderately severe multilevel facet degenerative changes. IMPRESSION: Age-indeterminate mild compression fractures in T12 and L3. This document has been electronically signed by: Tawanna Weinstein DO on 01/14/2025 13:19:47
--- NOTE | ~2025-01-14 | US_ITS ---
CLINICAL HISTORY: left leg pain after total knee Venous duplex ultrasound left lower extremity Comparison: None provided FINDINGS: The visualized deep veins are fully compressible with normal Doppler color flow and spectral tracings. No popliteal cyst. IMPRESSION: 1. Negative for left lower extremity deep vein thrombosis. This document has been electronically signed by: Ferny Brown MD on 01/14/2025 16:04:15
--- NOTE | 2025-01-14 09:48 | ECG_ITS ---
Test Reason : CHEST PAIN Blood Pressure : */* mmHG Vent. Rate : 98 BPM Atrial Rate : 98 BPM P-R Int : 162 ms QRS Dur : 80 ms QT Int : 334 ms P-R-T Axes : 56 28 30 degrees QTcB Int : 426 ms Normal sinus rhythm Normal ECG No previous ECGs available Referred By: Generic ED Physician Electronically Signed By: Barber Gonzalez
[2025-01-14 10:03] VITALS: BP 148/74; PULSE 91; RESP 16; TEMP 36.1; O2SAT 96; BMI 28.2
[2025-01-14 10:38] LABS: MANUAL DIFF FLAG NO
[2025-01-14 10:40] LABS: Hematocrit 34.8 % (37.0-47.0); Hemoglobin 11.8 g/dl (12.0-16.0); Imm Gran Abs Auto 0.01 X10*3/uL (0.00-0.03); Imm Gran Pct Auto 0.2 % (0.0-0.4); Lymphocytes Absolute Auto 1.2 X10*3/uL (1.2-4.9); Mean Corpuscular HGB Conc 33.9 g/dl (31.0-35.0); Mean Corpuscular Hemoglobin 30.5 pg (27.0-33.0); Mean Corpuscular Volume 89.9 fL (80.0-98.0); NRBC Abs Auto 0.000 X10*3/uL (0.0-0.012); NRBC Pct Auto 0.0 /100WBC (0.0-0.2); Platelet Count 288 X10*3/uL (160-400); Red Blood Count 3.87 X10*6/uL (4.20-5.50); White Blood Count 5.7 X10*3/uL (4.8-10.8)
--- OUTSIDE RECORDS SUMMARY | 2025-01-14 10:41 | XMS_ITS | Clinical Summary ---
Author Organization [facility] Address [address] [place] [address] Phone Care Team Providers Care Technical Operations Vice President Name Role Phone Mahogany Molina MD Primary Care Provider [phone] Allergies No known active allergies Medications aspirin [...] mouth 1 (one) time each day. Active multivitamin (MULTIPLE VITAMINS ORAL) Take by mouth 1 (one) time each day. 8 Active omega-3 acid ethyl esters (LOVAZA) 1 gram capsule Take 1 capsule (1 g total) by mouth 1 (one) time each day. Active Lactobacillus acidophilus (Probiotic) 10 billion cell capsule Take by mouth 1 (one) time each day. Active atorvastatin (LIPITOR) 10 mg tablet Take [...] each day. 90 capsule 3 5 Active ferrous sulfate 325 mg (65 mg iron) EC tablet Take 1 tablet (325 mg total) by mouth 3 (three) times a day with meals. Do not crush, chew, or split. Active risedronate (ACTONEL) 35 mg tablet Take 35 mg by mouth every 7 (seven) days. 12 tablet 1 5 Active valACYclovir (VALTREX) 1 gram tablet 2 tabs bid for 1 day only 4 tablet 5 5 Active celecoxib (CeleBREX) 200 mg capsule Take 1 capsule (200 mg total) by mouth 1 (one) time each day. 5 Active baclofen (LIORESAL) 10 mg tablet Take 1 tablet (10 mg total) by mouth at bedtime. Active Active Problems Problem Noted Date Diagnosed [...] Encounters Date Type Department Care Team Description 12/14/2024 4:15 PM EDT Office Visit Adult [address] [address] Mahogany Molina MD Acute left-sided low back pain with left-sided sciatica (Primary Dx); Osteoporosis, unspecified osteoporosis type, unspecified pathological fracture presence; Hypercholesteremia; Mild intermittent asthma without complication 10/27/2024 2:15 PM EDT Office Visit [address] [address] Mahogany Molina MD Hypercholesteremia (Primary Dx); Subclinical hypothyroidism; Osteoporosis, unspecified osteoporosis type, unspecified pathological fracture presence; Mild intermittent asthma without complication from Last 3 Months Immunizations Name Administration Dates Next Due Influenza Quadravalent, MDCK , 0.5ml, preservative free (Flucelvax) 6mo and older 01/10/2019,01/15/2018,01/18/2017 Influenza trivalent, 0.5mL, preservative free (Fluarix; FluLaval; Fluzone) ages 6mo and older (Afluria) 3 years and older 12/30/2023,02/04/2022,01/15/2018,01/25 Influenza trivalent, with pr eservative (Fluzone; Afluria) 6mo and older 01/19/2023,01/03/2020,01/17/2015,12/31,01/27/2007 Pfizer SARS-CoV-2 COVID-19, mRNA, LNP-S, preservative free 07/25/2021 [...] care for your loved ones. For example, child center assistant or elderly care for an older adult? [...] 40w 0d Vag-S pont None Living Delivery Location:[facility] Last Filed Vital Signs Vital Sign Reading Time Taken Comments Blood Pressure 104/50 12/14/2024 4:03 PM EDT Pulse 90 12/14/2024 4:03 PM EDT Temperature 35.6 C (96 F) 12/14/2024 4:03 PM EDT Respiratory Rate 16 12/14/2024 4:03 PM EDT Oxygen Saturation 98% 12/14/2024 4:03 PM EDT Inhaled Oxygen Concentration - - Weight 82.7 kg (182 lb 4.8 oz) 12/14/2024 4:03 P M EDT Height 170.2 cm (5' 7 ) 12/14/2024 4:03 PM EDT Body Mass Index 28.55 12/14/2024 4:03 PM EDT Plan of Treatment Upcoming Encounters Date Type Department Care Team (Late st Contact Info) Description 05/01/2025 8:30 AM EST Office Visit Adult Medicine [facility] [address] [place], [place] [phone] Bre Bruce PA [address] [place], [place] Health Maintenance Due Date Last Done Comments Cervical Cancer Screening: Pap Smear 01/18/2024 01/17/2021 COVID-19 Vaccine (8 - Pfizer risk 2023- season) 2024 01/12/2024, 01/07/2023, 01/20/2022, Additional history exists Influenza Vaccine (#1) 2024 , 01/19/2023, 02/04/2022, Additional history exists Medicare Annual Wellness Visit 04/22/2025 04/22/2024 Social Influencers of Health Screening 06/24/2025 06/24/2024 Falls Risk Assessment 12/13/2025 12/13/2024, 025 Breast Cancer Screening 04/29/2026 04/29/19, 04/27/2023, 03/25/2022, [...] Pneumococcal Vaccine: 50+ Years Completed 04/16/2024, 12/26/2015 Depression Screening Completed 12/12/2024 HIB Vaccines Aged Out No longer eligi [...] Procedure Name Priority Date/Time Associated Diagnosis Comments BD BONE DENSITY DXA AXIAL SKELETON Routine [...] Recently Relevant to Health Maintenance Results * BD Bone Density DXA Axial Skeleton (05/10/2024 9:09 AM EST) Anatomical Region Laterality Modality Wrist, Hip, L-spine Bone Densito metry 05/11/2024 12:0 4 PM EST Impressions 05/11/2024 12:05 PM EST 1. Osteopenia. 2. FRAX analysis yields a 10-year probability of major osteoporotic fracture of 18.7% and a 10-year probability of hip fracture of 1.5%. Code 58600 -------- FINAL REPORT -------- Dictated By: Herb Iniguez Dictated Date: 05/11/2024 12:04 ET Assigned Physician: Herb Iniguez Reviewed and Electronically Signed By: Herb Iniguez Signed Date: 05/11/2024 12:05 ET Workstation ID: [id number] Transcribed By: Self Edit Transcribed Date: 05/11/2024 [...] density of the femurs bilaterally is 0.857 gm/zu5csrrr is 85% of that of young normals and 93% of that of age matchedcontrols. This yields a T-score of -1.2 and a Z-score of -0.5 which isdiagnostic of osteopenia. IMPRESSION: 1. Osteopenia. 2. FRAX analysis yields a 10-year probability of major osteoporoticfracture of 18.7% and a 10-year probability of hip fracture of 1.5%. Code 28091 -------- FINAL REPORT -------- Dictated By: Herb Iniguez Dictated Date: 05/11/2024 12:04 ET Assigned Physician: Herb Iniguez Reviewed and Electronically Signed By: Herb Iniguez Signed Date: 05/11/2024 12:05 ET Workstation ID: [id number] Transcribed By: Self Edit Transcribed Date: 05/11/2024 12:04 ET Mahogany Molina MD [facility] DXA PROCEDURES Final Result * MG Mammo [...] for biopsy. PQRI CPT II 3342F Code 61733, 21777 PQRI 225 CPT II 7025F TISSUE DENSITY: There are scattered areas of fibroglandular density. (BI-RADS category B) IMPRESSION: Benign. BI-RADS CATEGORY: 2 - BENIGN RECOMMENDATION: Screening bilateral mammogram is recommended in 1 year. Mammo Location: [facility], [address] [place] [id number] -------- FINAL REPORT -------- Dictated By: Herb Iniguez Dictated Date: 04/29/2024 09:13 ET Assigned Physician: Herb Iniguez Reviewed and Electronically Signed By: Herb Iniguez Signed Date: 04/29/2024 09:18 ET Workstation ID: [id number] Transcribed By: Self Edit Transcribed Date: 04/29/2024 09:13 ET Narrative 04/29/2024 9:18 AM EST CLINICAL: The patient is a 64 years Female presenting for routine screening mammography. COMPARISON: Most recently 04/27/2023 and most remotely 03/11/2017. TECHNIQUE: Full-field digital mammography of the breasts bilaterally consisting of tomosynthesis in MLO and CC projection is performed in the [employer] 2000-D unit. Computer aided detection utilizing the [...] MLO and CC projection is performed in the[employer] 2000-D unit. Computer aided detection utilizing the iCADsystem was utilized. FINDINGS: The breasts are again [...] for biopsy. PQRI CPT II 3342F Code 75853, 47464 PQRI 225 CPT II 7025F TISSUE DENSITY: There are scattered areas of fibroglandular density.(BI-RADS category B) IMPRESSION: Benign. BI-RADS CATEGORY: 2 - BENIGN RECOMMENDATION: Screening bilateral mammogram is recommended in 1 year. Mammo Location: [facility], [address] [place] [address] -------- FINAL REPORT -------- Dictated By: Herb Iniguez Dictated Date: 04/29/2024 09:13 ET Assigned Physician: Herb Iniguez Reviewed and Electronically Signed By: Herb Iniguez Signed Date: 04/29/2024 09:18 ET Workstation ID: [id number] Transcribed By: Self Edit Transcribed Date: 04/29/2024 09:13 ET us Self Referral Sppl IMG BI PROCEDURES Final Resul t * (ABNORMAL) Lipid panel with reflex to direct LDL (04/26/2024 7:50 AM EST) Cholesterol 212(H) 0 - 200 mg/dL LAB CHEMISTRY METHOD 04/26/2024 10:34 AM EST [facility] Triglycerides 103 0 - 150 mg/dL LAB CHEMISTRY METHOD 04/26/2024 10:34 AM EST [facility] HDL 66 >=40 mg/dL LAB CHEMISTRY METHOD 04/26/2024 10:34 AM EST [facility] LDL Calculated 125(H) 0 - 100 mg/dL LAB CHEMISTRY METHOD 04/26/2024 10:34 AM EST [facility] VLDL Cholesterol Seng 20.6 mg/dL LAB CHEMISTRY METHOD 04/26/2024 10:34 AM EST [facility] Non HDL Chol. (LDL+VLDL) 146(H) <145 mg/dL LAB CHEMISTRY METHOD 04/26/2024 10:34 AM EST [facility] Chol/HDL Ratio 3.2 0.0 - 4.4 LAB CHEMISTRY METHOD 04/26/2024 10:34 AM EST [facility] Blood Venous blood specimen / Unknown Venipuncture / Unknown 04/26/2024 7:50 AM EST 04/26/2024 7:50 AM EST Mahogany Molina MD LAB BLOOD ORDERABLES Final Resul t [facility] [address] [place] [address], [place] [phone] * Pap smear (01/17/2021) 01/17/2021 Narrative HISTORICAL TESTING LAB RESULTING AGENCY - 01/31/2021 1:20 PM EDT [id number] THINPREP PAP, IMAGED: NEGATIVE FOR SQUAMOUS INTRAEPITHELIAL [...] ANY DIAGNOSIS. LMP 10/14/11, Z12.4 May Catalan CNM LAB CYTOLOGY ORDERABLES Final Result HISTORICAL TESTING LAB RESULTING AGENCY from Last 3 Months or Most Recently Relevant to Health Maintenance Insurance [employer] MEDICARE ADVANTAGE Care Teams Technical Operations Vice President Relationship Specialty Start Date End Date Mahogany Molina MD [address] [facility] [place] [phone] PCP - General 07/25/99
[2025-01-14 10:59] LABS: Alanine Aminotransferase 28 U/L (0-31); Albumin Level 4.6 g/dL (3.5-5.0); Alkaline Phosphatase 81 U/L (39-117); Anion Gap 13 (12-20); Aspartate Amino Transferase 29 U/L (5-31); Blood Urea Nitrogen 16 mg/dL (9-16); Calcium 9.5 mg/dL (8.4-10.2); Carbon Dioxide 27 mmol/L (22-29); Chloride 103 mmol/L (96-108); Creatinine Clr Calc Pharmacy 97.8; Estimated Glomerular Filt Rate > 60; Potassium 3.7 mmol/L (3.3-5.1); Sodium 139 mmol/L (135-145); Total Protein 7.8 g/dL (6.5-8.0)
[2025-01-14 11:03] LABS: INTERNATIONAL NORM RATIO 0.9 (0.9-1.1); Prothrombin Time 10.3 SEC (10.9-12.4)
--- NOTE | 2025-01-14 11:15 | PC.NURSE ---
Pt to ED 1 from triage, A/O x 3 with clear speech. Reports left knee surgery approx 3 weeks ago, states on 01/11 pt developed numbness/ tingling to lower extremities. +CMS to BLE with strong pedal pulses. #20 to RUE, call hale placed within reach and pt able to make needs known.
--- NOTE | 2025-01-14 11:31 | PC.NURSE ---
Pt up to BR, ambulated with wheeled walker and steady gait. Denies dizziness/lightheadedness.
--- NOTE | 2025-01-14 11:38 | ED_ITS ---
HPI - General Adult General Chief complaint: General Medical Stated complaint: chest tightness Time Seen by Provider: 01/14/25 11:38 History of Present Illness ED Provider: Maggie RITCHIE narrative: The patient is a 64-year-old female who had surgery on her left knee 3 weeks ago at [facility]. She had a total knee replacement by Dr. Brayden Cadet. The patient says that before the surgery she was having some problems with the back pain. She had done some moving of boxes that exacerbated some back pain prior to the surgery. She was prescribed some baclofen prior to the surgery. After the surgery she has had good range of motion of the left knee but has had problems with the pain. She has variably been on tramadol, oxycodone and hydromorphone for pain. She has been going to physical therapy. She has been having pain in the left leg. She has also been experiencing episodes of numbness in the left leg and some worsening low back pain. Over the last 2 nights she has also had some numbness in the left arm and she thought at 1 point she might have also had some left facial numbness. No difficulty speaking. No fever, sweats, chills. No bowel or bladder control complaints. She came to the emergency room today because she has had concerns about the pain in the left leg and she has also had concerns about these episodes of numbness in the left arm in the left leg. Postoperatively she was advised to take a full-strength aspirin 2 times a day for 30 days. Related Data Home Medications ?Medication ?Instructions ?Recorded ?Confirmed Lactobacillus acidophilus 1 1,000 mmu cells PO DAILY 0 10/05/24 billion cell capsule aspirin 81 mg tablet,delayed 81 mg PO DAILY 10/05/24 release (Adult Low Dose Aspirin) atorvastatin 10 mg tablet (Lipitor) 10 mg PO DAILY calcium 600 mg (as 1 cap PO DAILY 10/05/24 carbonate)-vitamin D3 10 mcg (400 unit) capsule cetirizine 10 mg tablet (Zyrtec) 10 mg PO DAILY PRN fluticasone propionate 50 1 spray intranasal BID 10/05 mcg/actuation nasal spray,suspension glucosamine HCl 1,500 mg tablet 1,500 mg PO DAILY 09/18 12/12 levothyroxine 25 mcg capsule 37.5 mcg PO DAILY 5 meloxicam 15 mg tablet 15 mg PO DAILY 10/05/24 omega-3 acid ethyl esters 1 gram 1 cap PO DAILY capsule omeprazole 20 mg capsule,delayed 20 mg PO DAILY release risedronate 35 mg tablet 35 mg PO QWEEK 10/05/24 valacyclovir 1 gram tablet 2,000 mg PO BID 10/05/24 (Valtrex) vitamin B complex 1 tab PO DAILY 10/05/24 Previous Rx's ?Medication ?Instructions ?Recorded ramelteon 8 mg tablet (Rozerem) 8 mg PO BEDTIME sleep difficulties 10/12/24 3 months #90 tabs ferrous sulfate 325 mg (65 mg 325 mg PO DAILY anemia 3 months 10/31/24 iron) tablet #90 tabs zolpidem 5 mg tablet (Ambien) 5 mg PO BEDTIME #20 tabs 11/30/24 Allergies Allergy/AdvReac Type Severity Reaction Status Date / Time No Known Allergies Allergy Verified 01/14/25 10:06 Review of Systems 2 Review of Systems: Yes all other systems are reviewed and are negative [facility] Past Medical History Medical History Hypothyroidism (acquired) Arthritis of knee Asthma Actinic keratosis Alopecia areata Age related osteoporosis Herpes simplex antibody positive Anorectal polyp Subclinical hypothyroidism Hypercholesteremia Hemorrhoid Surgical History History of radial keratotomy H/O knee surgery H/O colonoscopy H/O breast biopsy Family History Family History Mother Breast cancer Diabetes mellitus HTN (hypertension) Afib NICKY (obstructive sleep apnea) Cataract Osteoporosis SCC (spinal cord compression) Dementia Father Stroke NICKY (obstructive sleep apnea) Tumor, thyroid Glioblastoma Sister SCC (spinal cord compression) Thyroid disease Brother HTN (hypertension) Maternal Grandfather Lung cancer Paternal Grandmother Stroke Paternal Grandfather Kidney disease Maternal Aunt Colon cancer COPD (chronic obstructive pulmonary disease) Maternal Uncle Lung cancer Social History Social History Alcohol intake: current Patient Tobacco Use Status: Never used Tobacco e-Cigarette/Vaping Use: Never Used Physical Exam ED Vital Signs: Vital Signs - 24 hr 01/14/25 12:49 01/14/25 16:24 01/14/25 16:38 Temperature 98.1 F 97.9 F 97.9 F Pulse Rate 86 93 93 Respiratory Rate 18 18 18 Blood Pressure 148/83 H 126/79 126/79 Pulse Oximetry 97 98 98 Oxygen Delivery Method Room Air Room Air Room Air BMI result Body Mass Index 28.2 Const Other: The patient is awake and alert. She does not appear in acute distress. She is shows no signs of a neurological deficit. HENMT Other: Face is symmetrical. Tongue is midline. Mucous membranes moist. Eyes Other: Pupils are round equal, conjunctivae are clear, extraocular movements are intact, visual gan are intact to confrontation. Neck Neck: Yes normal visual inspection and Yes full ROM Cardio Rate: regular rate Rhythm: regular rhythm Heart sounds: S1 normal heart sound present and S2 normal heart sound present GI Other: Abdomen is soft and nontender Skin Other: There is a well-healing scar vertically oriented over the left knee. No erythema. Some mild generalized edema to the left lower leg from the knee down. The skin is otherwise unremarkable. Neuro Other: The patient is awake and alert with a normal mental status. Normal orientation. Cranial nerves 2-12 are intact. She has normal strength in all 4 extremities. There was no pronator drift. She seems to have intact sensation in all extremities. Finger-nose is normal. Reflexes are 1+ at the biceps, triceps, knees, and ankles. Toes are down bilaterally. She seems neurologically intact. Extrem Other: There is a vertically oriented surgical scar over the left patella which seems to be healing well. No erythema. There is some mild generalized edema in the region of the left knee and the left lower leg generally but without erythema or other signs of concern. Both feet are well-perfused with good pulses in the dorsalis pedis. Medications Administered Discontinued Medications Generic Name Dose Route Start Last Admin Trade Name Freq PRN Reason Stop Dose Admin Acetaminophen 975 mg 01/14/25 14:38 01/14/25 14:45 Acetaminophen 325 Mg Tablet PO 01/14/25 14:39 975 mg ONCE ONE Administration Hydromorphone HCl 2 mg 01/14/25 14:38 01/14/25 14:45 Hydromorphone Hcl 2 Mg Tablet PO 01/14/25 14:39 2 mg ONCE ONE Administration Medical Decision Making Medical Decision Making [facility] Narrative: The patient is a 64-year-old woman who is 3 weeks postoperative from a left total knee replacement surgery. The patient has been having problems with back pain a couple of weeks before the surgery. She has had problems with back pain since the surgery as well. She has also had general pain control issues and has had different muscle relaxants and opioids prescribed. Most recently she has had hydromorphone tablets prescribed. She has been having pain and swelling in the left leg and she has been having concerns about the possibility of a DVT. We addressed this with an ultrasound of the leg that was negative. She has also been having symptoms of numbness and tingling in her arms and possibly also in the left side of her face. Her neurological exam in the emergency room today seems quite normal. I do not appreciate any neurological deficits and I do not have a very high suspicion either for a stroke or for any kind of an acute spinal cord process of any concern. Plain x-rays of her cervical spine shows some degenerative changes. Plain x-rays of her lumbar spine shows mild old compression fractures of T12 and L3. I spoke to the patient about her x-ray findings. I believe she has previously been told about these old fractures on earlier studies. My overall impression is that the patient is not having any acutely dangerous process. She apparently has an appointment with the spine surgeon on Thursday, in 3 days. I think she may be discharged to continue her current pain medications and follow up with her current providers. Lab Data 01/14/25 10:33 01/14/25 10:33 Labs: Lab Results 01/14/25 Range/Units 10:33 WBC 5.7 (4.8-10.8) X10*3/uL RBC 3.87 L (4.20-5.50) X10*6/uL Hgb 11.8 L (12.0-16.0) g/dl Hct 34.8 L (37.0-47.0) % MCV 89.9 (80.0-98.0) fL MCH 30.5 (27.0-33.0) pg MCHC 33.9 (31.0-35.0) g/dl RDW 13.0 (11.0-16.0) % Plt Count 288 D (160-400) X10*3/uL MPV 9.3 L (9.4-12.3) fL Immature Gran % (Auto) 0.2 (0.0-0.4) % Neut % (Auto) 66.9 (45-73) % Lymph % (Auto) 21.6 (20-40) % [place] % (Auto) 7.6 (2-11) % Eos % (Auto) 2.5 (0-4) % Baso % (Auto) 1.2 (0-2) % Lymph # (Auto) 1.2 (1.2-4.9) X10*3/uL [place] # (Auto) 0.4 (0.1-1.2) X10*3/uL Eos # (Auto) 0.1 (0.0-0.4) X10*3/uL Baso # (Auto) 0.1 (0.0-0.2) X10*3/uL Abs Immat Gran (auto) 0.01 (0.00-0.03) X10*3/uL Absolute Neuts (auto) 3.8 (2.0-8.3) x10*3/uL Absolute Nucleated RBC 0.000 (0.0-0.012) X10*3/uL Nucleated RBC % (auto) 0.0 (0.0-0.2) /100WBC PT 10.3 L (10.9-12.4) SEC INR 0.9 (0.9-1.1) Sodium 139 (135-145) mmol/L Potassium 3.7 (3.3-5.1) mmol/L Chloride 103 (96-108) mmol/L Carbon Dioxide 27 (22-29) mmol/L Anion Gap 13 (12-20) BUN 16 (9-16) mg/dL Creatinine 0.63 (0.5-1.4) mg/dL Estim Creat Clear Calc 97.8 Estimated GFR > 60 Random Glucose 87 (60-115) mg/dL Calcium 9.5 D (8.4-10.2) mg/dL Total Bilirubin 0.4 (0.0-1.0) mg/dL AST 29 (5-31) U/L ALT 28 (0-31) U/L Alkaline Phosphatase 81 (39-117) U/L Total Protein 7.8 (6.5-8.0) g/dL Albumin 4.6 (3.5-5.0) g/dL Independent Interpretation I performed an independent interpretation of an: EKG Interpretation: EKG at 09:52 shows normal sinus rhythm at 98 beats per minute. It seems to be a normal EKG. There are no old EKGs for comparison. Discharge Plan Discharge Clinical Impression: Left leg pain, Bilateral numbness and tingling of arms and legs Patient Disposition: Home, Self-Care Additional Instructions: Your neck x-ray shows some arthritis in your neck but not an unusual amount. Your lumbar spine x-ray shows some mild old fractures of T12 and L3. Please continue your current pain medications. My hope is you will be able to get the diazepam on Thursday. Please keep your appointment with the spine doctor on Thursday. Return to the emergency room if significantly worse. Prescriptions: No Action ferrous sulfate 325 mg (65 mg iron) tablet 325 mg PO DAILY MDD 325 mg 90 Days Qty: 90 2RF Rx Instructions: 325mg po iron every other day with orange juice. zolpidem [Ambien] 5 mg tablet 5 mg PO BEDTIME MDD 5mg po Qty: 20 0RF Rx Instructions: take one 5mg tablet as needed at night for insomnia. cetirizine [Zyrtec] 10 mg tablet 10 mg PO DAILY PRN atorvastatin [Lipitor] 10 mg tablet 10 mg PO DAILY aspirin [Adult Low Dose Aspirin] 81 mg tablet,delayed release (DR/EC) 81 mg PO DAILY fluticasone propionate 50 mcg/actuation spray,suspension 1 spray intranasal BID Rx Instructions: administer into each nostril glucosamine HCl 1,500 mg tablet 1,500 mg PO DAILY Rx Instructions: administer with a meal calcium carbonate-vitamin D3 600 mg-10 mcg (400 unit) capsule 1 cap PO DAILY levothyroxine 25 mcg capsule 37.5 mcg PO DAILY Lactobacillus acidophilus 1 billion cell capsule 1,000 mmu cells PO DAILY valacyclovir [Valtrex] 1 gram tablet 2,000 mg PO BID meloxicam 15 mg tablet 15 mg PO DAILY omeprazole 20 mg capsule,delayed release(DR/EC) 20 mg PO DAILY vitamin B complex Tablet 1 tab PO DAILY risedronate 35 mg tablet 35 mg PO QWEEK Rx Instructions: administer at least 30 minutes before the first food or drink of the day other than water. omega-3 acid ethyl esters 1 gram capsule 1 cap PO DAILY ramelteon [Rozerem] 8 mg tablet 8 mg PO BEDTIME MDD 8mg 90 Days Qty: 90 3RF Rx Instructions: 8mg po daily at bedtime. Referrals: Mahogany Molina MD [Primary Care Provider, Internal Medicine] Interventions: ED Discharge Assessment Last Done: 01/14/25 16:38 Discharge Date/Time: 01/14/25 16:38 Print Language: Citizen Of [place]
[2025-01-14 12:49] VITALS: BP 148/83; PULSE 86; RESP 18; TEMP 36.7; O2SAT 97
[2025-01-14 16:24] VITALS: BP 126/79; PULSE 93; RESP 18; TEMP 36.6; O2SAT 98
[2025-01-14 16:38] VITALS: BP 126/79; PULSE 93; RESP 18; TEMP 36.6; O2SAT 98
== END 2025-01-14 16:38 | disposition home or self-care (01) ==
PROVIDERS: Emergency Provider Emergency Medicine; PCP Internal Medicine
DX: R07.89 Other chest pain (principal); R60.0 Localized edema; M54.50 Low back pain, unspecified; M54.2 Cervicalgia; R20.0 Anesthesia of skin; M79.605 Pain in left leg; Z79.899 Other long term (current) drug therapy
CPT/HCPCS: 36415; 72040; 72100; 80053; 85025; 85610; 93005; 93971; 99284; 99285

== ENCOUNTER → 2025-01-14 09:48 | Outpatient (BNV) | payer MEDICARE, SELFPAY | PROVIDERS: Emergency Provider Emergency Medicine; PCP Internal Medicine; Visit Provider Internal Medicine Cardiovascular Disease | DX: R07.89 Other chest pain (principal) | CPT/HCPCS: 93010 ==

== ENCOUNTER → 2025-01-14 11:56 | Outpatient (BNV) | payer MEDICARE, SELFPAY | PROVIDERS: Emergency Provider Emergency Medicine; PCP Internal Medicine; Visit Provider Radiology Diagnostic Radiology | DX: M79.605 Pain in left leg (principal); M50.30 Other cervical disc degeneration, unspecified cervical region; M54.50 Low back pain, unspecified; R20.2 Paresthesia of skin | CPT/HCPCS: 72040; 72100; 93971 ==

== ENCOUNTER → 2025-01-19 08:57 | Outpatient (REF) | payer MEDICARE, SELFPAY ==
--- OUTSIDE RECORDS SUMMARY | 2025-01-19 09:37 | XMS_ITS | Clinical Summary ---
Author Organization [facility] Address [address] [place] [address] Phone Care Team Providers Care Figure Clerk Name Role Phone Mahogany Molina MD Primary Care Provider [phone] Allergies No known active allergies Medications aspirin [...] 12/14/2024 4:15 PM EDT Office Visit Adult [address] [address] Mahogany Molina MD Acute left-sided low back pain with left-sided sciatica (Primary Dx); Osteoporosis, unspecified osteoporosis type, unspecified pathological fracture presence; Hypercholesteremia; Mild intermittent asthma without complication 10/27/2024 2:15 PM EDT Office Visit [address] [phone] Mahogany Molina MD Hypercholesteremia (Primary Dx); Subclinical hypothyroidism; Osteoporosis, unspecified osteoporosis type, unspecified pathological fracture presence; Mild intermittent asthma without complication from Last 3 Months Immunizations Immunization Administration Dates Next Due Influenza Quadravalent, MDCK [...] subun it RSVpreF, 0.5mL, Preservative Free (ABRYSVO) 50yo and older or 32 through 36 wks [...] care for your loved ones. For example, rn maternal child or elderly care for an older [...] Date Recorded What is your living situation? Unrecognized valu e 06/24/2024 Comments No Sex and Gender Information [...] 40w 0d Vag-S pont None Living Delivery Location:[facility] [place] Last Filed Vital Signs Vital [...] 8:30 AM EST Office Visit Adult Medicine [address] [phone] Bre Bruce PA [address], [place] Health Maintenance Due Date Last Done [...] probability of hip fracture of 1.5%. Code 34166 -------- FINAL REPORT -------- Dictated By: Herb Iniguez Dictated Date: 05/11/2024 12:04 ET Assigned Physician: Herb Iniguez Reviewed and Electronically Signed By: Herb Iniguez Signed Date: 05/11/2024 12:05 ET Workstation ID: [id number] Transcribed By: Self Edit Transcribed Date: 05/11/2024 [...] density of the femurs bilaterally is 0.857 gm/br5lnben is 85% of that of young normals and 93% of that of age matchedcontrols. This yields a T-score of -1.2 and a Z-score of -0.5 which isdiagnostic of osteopenia. IMPRESSION: 1. Osteopenia. 2. FRAX analysis yields a 10-year probability of major osteoporoticfracture of 18.7% and a 10-year probability of hip fracture of 1.5%. Code 35221 -------- FINAL REPORT -------- Dictated By: Herb Iniguez Dictated Date: 05/11/2024 12:04 ET Assigned Physician: Herb Iniguez Reviewed and Electronically Signed By: Herb Iniguez Signed Date: 05/11/2024 12:05 ET Workstation ID: [id number] Transcribed By: Self Edit Transcribed Date: 05/11/2024 12:04 ET Mahogany Molina MD [facility] DXA PROCEDURES Final Result * MG Mammo [...] for biopsy. PQRI CPT II 3342F Code 67914, 16042 PQRI 225 CPT II 7025F TISSUE DENSITY: There are scattered areas of fibroglandular density. (BI-RADS category B) IMPRESSION: Benign. BI-RADS CATEGORY: 2 - BENIGN RECOMMENDATION: Screening bilateral mammogram is recommended in 1 year. Mammo Location: [facility], [address] [place] [id number] -------- FINAL REPORT -------- Dictated By: Herb Iniguez Dictated Date: 04/29/2024 09:13 ET Assigned Physician: Herb Iniguez Reviewed and Electronically Signed By: Herb Iniguez Signed Date: 04/29/2024 09:18 ET Workstation ID: [id number] Transcribed By: Self Edit Transcribed Date: 04/29/2024 09:13 ET Narrative 04/29/2024 9:18 AM EST CLINICAL: The patient is a 64 years Female presenting for routine screening mammography. COMPARISON: Most recently 04/27/2023 and most remotely 03/11/2017. TECHNIQUE: Full-field digital mammography of the breasts bilaterally consisting of tomosynthesis in MLO and CC projection is performed in the [employer] 2000-D unit. Computer aided detection utilizing the [...] MLO and CC projection is performed in the[employer] 2000-D unit. Computer aided detection utilizing the [...] for biopsy. PQRI CPT II 3342F Code 40478, 70297 PQRI 225 CPT II 7025F TISSUE DENSITY: There are scattered areas of fibroglandular density.(BI-RADS category B) IMPRESSION: Benign. BI-RADS CATEGORY: 2 - BENIGN RECOMMENDATION: Screening bilateral mammogram is recommended in 1 year. Mammo Location: [facility] [place] [facility], [address] [place] [address] -------- FINAL REPORT -------- Dictated By: Herb Iniguez Dictated Date: 04/29/2024 09:13 ET Assigned Physician: Herb Iniguez Reviewed and Electronically Signed By: Herb Iniguez Signed Date: 04/29/2024 09:18 ET Workstation ID: [id number] Transcribed By: Self Edit Transcribed Date: 04/29/2024 09:13 ET us Self Referral Sppl IMG BI PROCEDURES Final Resul t * (ABNORMAL) Lipid panel with reflex to direct LDL (04/26/2024 7:50 AM EST) Cholesterol 212(H) 0 - 200 mg/dL LAB CHEMISTRY METHOD 04/26/2024 10:34 AM EST [facility] Triglycerides 103 0 - 150 mg/dL LAB CHEMISTRY METHOD 04/26/2024 10:34 AM EST [facility] HDL 66 >=40 mg/dL LAB CHEMISTRY METHOD 04/26/2024 10:34 AM [facility] LDL Calculated 125(H) 0 - 100 mg/dL LAB CHEMISTRY METHOD 04/26/2024 10:34 AM EST [facility] VLDL Cholesterol Seng 20.6 mg/dL LAB CHEMISTRY METHOD 04/26/2024 10:34 AM EST [facility] Non HDL Chol. (LDL+VLDL) 146(H) <145 mg/dL LAB CHEMISTRY METHOD 04/26/2024 10:34 AM EST [facility] Chol/HDL Ratio 3.2 0.0 - 4.4 LAB CHEMISTRY METHOD 04/26/2024 10:34 AM EST [facility] Blood Venous blood specimen / Unknown Venipuncture / Unknown 04/26/2024 7:50 AM EST 04/26/2024 7:50 AM EST us Mahogany Molina MD LAB BLOOD ORDERABLES Final Resul t [facility] [address] [place] [address], [place] [phone] * Pap smear (01/17/2021) 01/17/2021 Narrative HISTORICAL TESTING LAB RESULTING AGENCY - 01/31/2021 1:20 PM EDT [id number] THINPREP PAP, IMAGED: NEGATIVE FOR SQUAMOUS INTRAEPITHELIAL [...] ANY DIAGNOSIS. LMP 10/14/11, Z12.4 May Catalan CN LAB CYTOLOGY ORDERABLES Final Result HISTORICAL TESTING LAB RESULTING AGENCY from Last 3 Months or Most Recently Relevant to Health Maintenance Insurance [employer] MED[employer]ARE [employer]VANTAGE Care Teams Figure Clerk Relationship Specialty Start Date End Date Mahogany Molina MD [address] [place] [address] PCP - General 07/25/99
== END ==
LOC: HO.SL 08:57
PROVIDERS: PCP Internal Medicine; Visit Provider Physician Assistant Medical
DX: G47.19 Other hypersomnia (principal)
CPT/HCPCS: 95806

== ENCOUNTER → 2025-01-19 09:06 | Outpatient (BNV) | payer MEDICARE, SELFPAY | PROVIDERS: PCP Internal Medicine; Visit Provider Psychiatry & Neurology Neurology | DX: G47.10 Hypersomnia, unspecified (principal) | CPT/HCPCS: 95806 ==

== ENCOUNTER 2025-02-17 10:22 | Outpatient (AMB) | payer MEDICARE, SELFPAY ==
--- OUTSIDE RECORDS SUMMARY | 2025-02-13 15:30 | XMS_ITS | Encounter Summary ---
Author Organization [facility] Address [address] [place] [address] Care Team Providers Care Foreign Exchange Trader Name Role Phone Mahogany Molina MD Primary Care Provider [phone] Reason for Visit * Reason Comments Osteoporosis Consult for osteopor osis * Consultation (Routine) - Closed Specialty Diagnoses / Procedures Referred By Contac t Referred To Contact Endocrinology Diagnoses Osteoporosis, unspecified osteoporosis type, unspecified pathological fracture presence Virginia Montiel PA [address] [place] [address] Phone: tel: fax: Endocrinology - [address] Phone: tel: fax: Referral ID Status Reason Start Date Expiration Date V isits Requested Visits Authorized [id number] Closed Specialty Services Required 02/03/2025 02/03/2026 1 1 Encounter Details Date Type Department Care Team (Late st Contact Info) Description 02/13/2025 3:30 PM EDT Consult Endocrinology - [address] [phone] Angy Solitario MD [address] [place] [address] Osteoporosis, unspecified osteoporosis type, unspecified pathological fracture presence Social History Tobacco Use Types Packs/Day Years Used Date Smoking Tobacco: Never Smokeless Tobacco: Never Alcohol Use Standard Drinks/Week Comments Yes 2 [...] for your loved ones. For example, child care worker or elderly care for an older adult? [...] on file Sexual Orientation Not on file documented as of this encounter Last Filed Vital Signs Vital Sign Reading Time Taken Comments Blood Pressure 109/68 02/13/2025 3:25 PM EDT Pulse 84 02/13/2025 3:25 PM EDT Temperature - - Respiratory Rate 13 02/13/2025 3:25 PM EDT Oxygen Saturation - - Inhaled Oxygen Concentration - - Weight 82.1 kg (181 lb) 02/13/2025 3:25 PM EDT Height 170.2 cm (5' 7 ) 02/13/2025 3:25 PM EDT Body Mass Index 28.35 02/13/2025 3:25 PM EDT documented in this encounter Progress Notes * Angy Solitario MD - 02/13/2025 3:30 PM EDT CHIEF COMPLAINT: Osteoporosis (Consult for osteoporosis) IDENTIFIER: Bernice Ruiz is a 65 y.o. old female. HPI: 65-year-old female with past medical history of osteoporosis, hypothyroidism, hyperlipidemia presents to the clinic today for initial evaluation of osteoporosis. Osteoporosis history: Diagnosed in: 2020 Diagnosed via: DEXA Other relevant PMH: Fracture history: L1 compression fracture in 01/12 while lifting heavy furniture; chronic T12, L3 fracture on xray in 01/12 Menarche: 13y Menopause: 53y Hormone replacement therapy: no Hx: , did not breastfeed Use of steroids: short courses for poison jelena Proton pump inhibitors: was on omeprazole on and off Antiepileptics: No Anticoagulants: No Anxiety or depression medication use: No Kidney stones: No History of cancer: No Chemotherapy: No Radiotherapy: No Dental history: no upcoming dental work Family history of osteoporosis or fractures: osteoporosis in mother and sister Family History Breast cancer: no Recent Falls: no Height: Maximum 5ft 8in, lost 1in Smoking: no Alcohol use: socially Exercise: 4x weekly yoga, swimming Calcium Intake: 1200mg in supplements Vitamin D intake: 800IU daily Bisphosphonate use: Risedronate 35 mg/week (started in 2020) Previous Osteoporosis medication (other than bisphosphonates): No Other pertinent medical history: No known history of rheumatological disease, thyroid disease, gastric bypass. Secondary causes of OP workup: Albumin Level No results found for: ALBUMIN Calcium Level Lab Results Component Value Date CALCIUM 9.4 04/26/2024 Calcium Urine 24 Hr No results found for: CALUVOL Collagen 1 C Telopeptide No results found for: CTELOPEPTIDE Creatinine Urine 24 Hr No results found for: [id number] Protein Electrophoresis No results found for: SPEPIFE PTH Intact No results found for: PTH Tissue Transglutaminase Ab IgA No results found for: TTGIGA Vitamin D 25 Hydroxy Level Lab Results Component Value Date CALCIDIOL 58.2 02/03/2025 DEXA: Results for orders placed during the hospital encounter of 05/10/24 BD Bone Density DXA Axial Skeleton Narrative HISTORY: The patient is a 64-year-old postmenopausal female with clinical concern for metabolic bone disease. FINDINGS: Dual energy x-ray absorptiometry of the lumbar spine and femurs is performed. The mean bone mineral density at L1-L4 is 0.898 gm/cm2 which is 76% of that of young normals and 83% of that ofage matched controls. This yields a T-score of -2.3 and a Z-score of -1.5 which is diagnostic of osteopenia. The mean bone mineral density of the femurs bilaterally is 0.857 gm/cm2 which is 85% of that of young normals and 93% of that of age matched controls. This yields a T-score of -1.2 and a Z-score of -0.5 which is diagnostic of osteopenia. Impression 1. Osteopenia. 2. FRAX analysis yields a 10-year probability of major osteoporotic fracture of 18.7% and a 10-yearprobability of hip fracture of 1.5%. SH: Social History Tobacco Use Smoking status: Never Smokeless tobacco: Never Substance Use Topics Alcohol use: Yes Alcohol/week: 2.0 standard drinks of alcohol FH: Family Status Relation Name Status Mother Father Sister x 2 Alive Brother x 2 Alive MGM MGF PGM PGF Daughter (Not Specified) Aunt maternal Uncle maternal No partnership data on file Family History[1] Review of Systems: 12-point review of systems was performed and is negative except for as stated above Physical Exam GENERAL: Alert and oriented, in no acute distress. Well-nourished and well-hydrated. HEAD/NECK: Normocephalic and atraumatic. EYES: Pupils equal, round, and reactive to light (PERRLA). Extraocular movements intact. Conjunctivae clear. LUNGS: Lungs clear to auscultation bilaterally. No wheezes, rales, or rhonchi. CARDIOVASCULAR: Regular rate and rhythm. Normal S1 and S2 sounds. No murmurs or gallops. ABDOMEN: Soft, non-tender, and non-distended. Bowel sounds are active and normal. EXTREMITIES: No edema or deformities. Full range of motion in all joints. NEUROLOGICAL: Alert and oriented. Grossly nonfocal SKIN: Skin is warm, dry, and intact. IMPRESSION: 1. Osteoporosis, unspecified osteoporosis type, unspecified pathological fracture presence 65-year-old female with past medical history of osteoporosis, hypothyroidism, hyperlipidemia presents to the clinic today for initial evaluation of osteoporosis. Risk factors for osteoporosis include postmenopausal age, race, prior history of vertebral fracture, family history of osteoporosis. Patient has been on risedronate for over 4 years now. She has had L1 compression fracture while on the risedronate. She reports compliance with the medication, no missed doses I will obtain bone turnover markers and a comprehensive metabolic panel. Bone turnover markers might be elevated in the setting of recent fracture. I am leaning towards switching her over to an anabolic given her vertebral fractures. I discussed Forteo, Tymlos, and Evenity with her. She thinks daily injections at home might be too much for her but is willing to do monthly injections. There is no history of cardiovascular disease. She would be a good candidate for the Evenity. I will send in the prescription for this once her labs result. I also reiterated importance of optimizing calcium/Vitamin D intake and weight bearing physical activity. Follow-up in 6 months Angy Solitario MD Endocrinology, Diabetes, and Metabolism [1] Family History Problem Relation Name Age of Onset Breast cancer Mother 74 DM, HTN, AFIB, NICKY, cataract, osteoporosis, SCC, dementia Stroke Father heart condition , NICKY, glioblastoma, thyroid tumor Thyroid disease Sister x 2 SCC Hypertension Brother x 2 HLD Lung cancer Maternal Grandfather Stroke Paternal Grandmother Other (Other: kidney disease ) Paternal Grandfather Hyperthyroidism Daughter Colon cancer Aunt maternal COPD Lung cancer Uncle maternal documented in this encounter Plan of Treatment Upcoming Encounters Date Type Department Care Team (Late st Contact Info) Description 05/01/2025 8:30 AM EST Office Visit Adult Medicine [facility] [address] [place] [address] Bre Bruce PA [address] [place], [place] 08/14/2025 9:00 AM EDT Office Visit [address] [phone] Angy Solitario MD [address] [place], [place] Pending Results Name Type Priority Associated Diagnoses Date /Time Collagen type 1, c-telopeptide Lab Routine Osteoporosis, unspecified osteoporosis type, unspecified pathological fracture presence 02/16/2025 8:26 AM EDT Scheduled Orders Name Type Priority Associated Diagnoses Orde r Schedule Collagen type 1, c-telopeptide Lab Routine Osteoporosis, unspecified osteoporosis type, unspecified pathological fracture presence 1 Occurrences starting 02/13/2025 until 02/13/2026 documented as of this encounter Results * Comprehensive metabolic panel (02/16/2025 8:26 AM EDT) Sodium 138 133 - 145 mmol/L LAB CHEMISTRY METHOD 02/16/2025 1:12 PM EDT [facility] Potassium 4.6 3.5 - 5.5 mmol/L LAB CHEMISTRY METHOD 02/16/2025 1:12 PM EDT [facility] Chloride 106 96 - 110 mmol/L LAB CHEMISTRY METHOD 02/16/2025 1:12 PM EDT [facility] CO2 27 21 - 32 mmol/L LAB CHEMISTRY METHOD 02/16/2025 1:12 PM EDT [facility] Anion Gap 5 3 - 11 LAB CHEMISTRY METHOD 02/16/2025 1:12 PM [facility] Glucose 94 70 - 100 mg/dL LAB CHEMISTRY METHOD 02/16/2025 1:12 PM [facility] BUN 21 5 - 25 mg/dL LAB CHEMISTRY METHOD 02/16/2025 1:12 PM [facility] Creatinine 0.77 0.50 - 1.10 mg/dL LAB CHEMISTRY METHOD 02/16/2025 1:12 PM [facility] eGFR 85 >=60 mL/min/1. 73m2 LAB CHEMISTRY METHOD 02/16/2025 1:12 PM [facility] Comment:Calculation based on the Chronic Kidney Disease Epidemiology Collaboration (CKD-EPI) equation refit without adjustment for race. BUN/Creatinine Ratio 27.3 LAB CHEMISTRY METHOD 02/16/2025 1:12 PM [facility] Calcium 9.3 8.5 - 10.5 mg/dL LAB CHEMISTRY METHOD 02/16/2025 1:12 PM [facility] AST (SGOT) 30 10 - 42 unit/L LAB CHEMISTRY METHOD 02/16/2025 1:12 PM [facility] ALT (SGPT) 56 10 - 60 unit/L LAB CHEMISTRY METHOD 02/16/2025 1:12 PM [facility] Alkaline Phosphatase 96 42 - 121 unit/L LAB CHEMISTRY METHOD 02/16/2025 1:12 PM [facility] Total Protein 7.1 6.0 - 8.0 g/dL LAB CHEMISTRY METHOD 02/16/2025 1:12 PM [facility] Albumin 3.8 3.2 - 5.0 g/dL LAB CHEMISTRY METHOD 02/16/2025 1:12 PM [facility] Total Bilirubin 0.6 0.0 - 1.4 mg/dL LAB CHEMISTRY METHOD 02/16/2025 1:12 PM EDT [facility] Blood Venous blood specimen / Unknown Venipuncture / Unknown 02/16/2025 8:26 AM EDT 02/16/2025 8:26 AM EDT us Angy Solitario MD LAB BLOOD ORDERABLES Final Result [facility] [address] [place] [address], documented in this encounter Visit Diagnoses Diagnosis Osteoporosis, unspecified osteoporosis type, unspecified pathological fracture presence documented in this encounter Discontinued Medications Medication Sig Discontinue Reason Start Date End Da te vitamin B complex (VITAMINS B COMPLEX ORAL) Take by mouth 1 (one) time each day. 02/13/2025 celecoxib (CeleBREX) 200 mg capsule Take 1 capsule (200 mg total) by mouth 1 (one) time each day. 12/14/2024 02/13/2025 baclofen (LIORESAL) 10 mg tablet Take 1 tablet (10 mg total) by mouth at bedtime. 02/13/2025 documented as of this encounter Orders Outpatient Referral Count Last Ordered Date Fir st Ordered Date AMB REFERRAL TO ENDOCRINOLOGY 1 02/13/2025 documented in this encounter Additional Health Concerns Assessment Noted Time PHQ-9 Depression Total Score: 0 06/25/19 25 10:40 AM EST A fall risk assessment has been complete d for the patient 04/22/2024 11:20 AM EST documented as of this encounter Care Teams Foreign Exchange Trader Relationship Specialty Start Date End Date Mahogany Molina MD [address] [place] [address] PCP - General 07/25/99 documented as of this encounter
--- OUTSIDE RECORDS SUMMARY | 2025-02-16 08:15 | XMS_ITS | Encounter Summary ---
Author Organization [facility] Address [address] [place] [address] Care Team Providers Care Operator Helper Name Role Phone Mahogany Molina MD Primary Care Provider [phone] Encounter Details Date Type Department Care Team (Late st Contact Info) Description 02/16/2025 8:15 AM EDT Lab Draw Station [address] [address] Osteoporosis, unspecified osteoporosis type, unspecified pathological fracture [...] ed Within the last 3 months, ho [place] many times did you visit the emergency [...] care for your loved ones. For example, early childhood associate or elderly care for an older adult? [...] on file documented as of this encounter Plan of Treatment Upcoming Encounters Date Type Department Care Team (Late st Contact Info) Description 05/01/2025 8:30 AM EST Office Visit Adult Medicine [address] [phone] Bre Bruce PA [address] [place], [place] 08/14/2025 9:00 AM EDT Office Visit Endocrinology [address] [phone] Angy Solitario MD [address] [place] [address] Pending Results Name Type Priority Associated Diagnoses Date /Time Collagen type 1, c-telopeptide Lab Routine Osteoporosis, unspecified osteoporosis type, unspecified pathological fracture presence 02/16/2025 8:26 AM EDT documented as of this encounter Procedures Procedure Name Priority Date/Time Associated Diagnosis Comments COMPREHENSIVE METABOLIC PANEL Routine 02/16/2025 8:26 AM EDT Osteoporosis, unspecified osteoporosis type, unspecified pathological fracture presence documented in this encounter Results * Comprehensive metabolic panel (02/16/2025 8:26 AM EDT) Sodium 138 133 - 145 mmol/L LAB CHEMISTRY METHOD 02/16/2025 1:12 PM [facility] Potassium 4.6 3.5 - 5.5 mmol/L LAB CHEMISTRY METHOD 02/16/2025 1:12 PM [facility] Chloride 106 96 - 110 mmol/L LAB CHEMISTRY METHOD 02/16/2025 1:12 PM [facility] CO2 27 21 - 32 mmol/L LAB CHEMISTRY METHOD 02/16/2025 1:12 PM [facility] Anion Gap 5 3 - 11 LAB CHEMISTRY METHOD 02/16/2025 1:12 PM [facility] Glucose 94 70 - 100 mg/dL LAB CHEMISTRY METHOD 02/16/2025 1:12 PM [facility] BUN 21 5 - 25 mg/dL LAB CHEMISTRY METHOD 02/16/2025 1:12 PM [facility] Creatinine 0.77 0.50 - 1.10 mg/dL LAB CHEMISTRY METHOD 02/16/2025 1:12 PM [facility] eGFR 85 >=60 mL/min/1. 73m2 LAB CHEMISTRY METHOD 02/16/2025 1:12 PM [facility] Comment:Calculation based on the Chronic Kidney Disease Epidemiology Collaboration (CKD-EPI) equation refit without adjustment for race. BUN/Creatinine Ratio 27.3 LAB CHEMISTRY METHOD 02/16/2025 1:12 PM EDT [facility] Calcium 9.3 8.5 - 10.5 mg/dL LAB CHEMISTRY METHOD 02/16/2025 1:12 PM [facility] AST (SGOT) 30 10 - 42 unit/L LAB CHEMISTRY METHOD 02/16/2025 1:12 PM T [facility] ALT (SGPT) 56 10 - 60 unit/L LAB CHEMISTRY METHOD 02/16/2025 1:12 PM [facility] Alkaline Phosphatase 96 42 - 121 unit/L LAB CHEMISTRY METHOD 02/16/2025 1:12 PM [facility] Total Protein 7.1 6.0 - 8.0 g/dL LAB CHEMISTRY METHOD 02/16/2025 1:12 PM T [facility] Albumin 3.8 3.2 - 5.0 g/dL LAB CHEMISTRY METHOD 02/16/2025 1:12 PM [facility] Total Bilirubin 0.6 0.0 - 1.4 mg/dL LAB CHEMISTRY METHOD 02/16/2025 1:12 PM [facility] Blood Venous blood specimen / Unknown Venipuncture / Unknown 02/16/2025 8:26 AM EDT 02/16/2025 8:26 AM EDT us Angy Solitario MD LAB BLOOD ORDERABLES Final Result [facility] [address] [place] [address], documented in this encounter Visit Diagnoses Diagnosis Osteoporosis, unspecified osteoporosis type, unspecified pathological fracture presence documented in this encounter Additional Health Concerns Assessment Noted Time PHQ-9 Depression Total Score: 0 06/25/19 25 10:40 AM EST A fall risk assessment has been complete d for the patient 04/22/2024 11:20 AM EST documented as of this encounter Care Teams Operator Helper Relationship Specialty Start Date End Date Mahogany Molina MD [address] [place] [phone] PCP - General 07/25/99 documented as of this encounter
--- NOTE | 2025-02-17 10:32 | MHC.OFFVIS ---
Vital Signs 02/17/25 10:33 Height 5 ft 7 in BP 120/76 Blood Pressure Location Rt brachial Position Sitting Pulse 88 Pulse Source Pulse Oximeter Pulse Oximetry (%) 95 Oxygen Delivery Method Room Air Intake Visit Reasons: 3m follow up Intake Note: Patient presents follow up Sleep medication. Labs/HST in chart(AHI-<2, PATRICK-68%). Allergies No Known Allergies Allergy (Verified 02/17/25 10:35) HPI Comments Details: 65 year old female with h/o osteopenia presents for a f/u of her HST results. HST in chart(AHI is <2, and oxygen nadirs to 68%. She mentioned the pulse - ox did come off during the night of the HST. I will evaluate her with an in-lab PSG. Labs reviewed with pt. today. Imaging reviewed with pt. Lumbar and cervical spine. ED note is negative for l. lower ext dvt. On Dec 23 she had a L.TkR. at [facility] with Eliel Bach then completed outpatient PT 2x a week for 1 week with PANCHO, however will continue with PT in [place]. She is still doing exercises at home as tolerable. Last week on Feb 14, 2025 she had a Kyphoplaty cemented, surgical procedure for an old back injury in Nov 2024 while moving boxes she injured her lower back and never gained the strength due to T12/L1 fracture. She is still having lbp and icing her back today in clinic. She denies neuropathy of lower extremities or cold extremities. She continues to have upper ext tremors r>l, worse with action. She had a visiting nurse come into the home and noticed she had bradycardia, HR was in the low 50s. EKG and overnight holter monitor results were reassuring. She normally goes to bed at 11pm wakes up at 7am with 2 bathroom breaks. However since her recent surgical procedures she has fragmented sleep due to pain, and discomfort. She is taking tramadol 50-100mg prn pain since the kyphoplasty and notices she gets constipated. She is taking sennakot, metamucil, as needed. She snores at night per and has a difficult time staying asleep. She has gerd, well managed with omeprazole. She also takes zyrtec for allergies, due to dry gritty eyes, tearing usually in the AM lasts one hour and improves. She has a mouth guard for Bruxism. Denies morning headaches, RLS symptoms parasomnias. Her memory is stable, will occasionally forgets names, has to write everything down to keep track of appts medications etc. Mood is normal since her mom passed, this caused her to be depressed. She does not smoke, has alcohol occasionally and her diet is stable. She has started biking 5-10 min daily. [facility] Medical History Hypothyroidism (acquired) Arthritis of knee Asthma Actinic keratosis Alopecia areata Age related osteoporosis Herpes simplex antibody positive Anorectal polyp Subclinical hypothyroidism Hypercholesteremia Hemorrhoid Surgical History History of radial keratotomy H/O knee surgery H/O colonoscopy H/O breast biopsy Family History Mother Breast cancer Diabetes mellitus HTN (hypertension) Afib NICKY (obstructive sleep apnea) Cataract Osteoporosis SCC (spinal cord compression) Dementia Father Stroke NICKY (obstructive sleep apnea) Tumor, thyroid Glioblastoma Sister SCC (spinal cord compression) Thyroid disease Brother HTN (hypertension) Maternal Grandfather Lung cancer Paternal Grandmother Stroke Paternal Grandfather Kidney disease Maternal Aunt Colon cancer COPD (chronic obstructive pulmonary disease) Maternal Uncle Lung cancer Other Difficulty falling asleep at night until composition floor setter hours Social History Alcohol intake: current Patient Tobacco Use Status: Never used Tobacco e-Cigarette/Vaping Use: Never Used Physical Exam Vital Signs: Last Vital Signs Pulse 88 02/17/25 10:33 BP 120/76 02/17/25 10:33 Pulse Ox 95 02/17/25 10:33 Oxygen Delivery Method Room Air 02/17/25 10:33 Const General: cooperative, comfortable and no acute distress Nutritional Appearance: overweight Orientation/consciousness: patient oriented x3 HEENT Face and sinus: Yes face symmetric Throat: Yes other (Mallampti score is 3) Eyes Pupils: Equal, round and reactive pupils present Neck Neck: Yes full ROM Resp Effort & Inspection: normal respiratory effort and able to speak in complete sentences Neuro Other: mild tremors UE L>R, / speech is mumbled, due to large tongue per patient. sitting with ice pack on her lower back. General: patient oriented x3 and moves all extremities Cranial nerves: Yes Facial sensation intact/muscles of mastication intact, Yes Equal, round and reactive pupils present, Yes Normal accommodation reflex present, Yes Normal facial strength present, Yes Midline tongue present and Yes Ability to bilaterally rotate head present Cognition (Neuro): normal cognition Gait exam (Neuro): Shuffling gait present and Other gait observations present (recent h/o l. tkr and kyphoplasty) Motor exam (neuro): Tremors during motor activity present Psych Appearance: grossly normal Affect: normal affect Thought process: Normal thought process present Thought content: Normal thought content present Results Reviewed Results Reviewed: FINDINGS: The visualized deep veins are fully compressible with normal Doppler color flow and spectral tracings. No popliteal cyst. IMPRESSION: 01/14/ US Lower ext. 1. Negative for left lower extremity deep vein thrombosis. US Cervical spine xray Findings: Straightening of the normal lordosis is either due to muscle spasm or positioning.Satisfactory vertebral body alignment.No acute fractures or dislocation. Moderate disc space narrowing C5-6 and C6-7. Probable disc annulus calcifications at these levels. Moderate facet degenerative changes. Prevertebral soft tissues within normal limits. IMPRESSION: 1. No acute fracture in the cervical spine. 2. Moderate degenerative changes. lumbar xray 01/14/2025 Findings: Straightening of the normal lordosis is either due to muscle spasm or positioning. Likely degenerative minimal grade 1 retrolisthesis L3 on L4. Diffuse osteopenia. Mild inferior compression deformity in T12. Mild superior endplate compression deformity in L3.Moderate multilevel disc space narrowing.Moderately severe multilevel facet degenerative changes. IMPRESSION: Age-indeterminate mild compression fractures in T12 and L3. Labs reviewed with pt.\ Assessment & Plan Assessment & Plan (1) Excessive daytime sleepiness: Code(s): G47.19 - Other hypersomnia Category: Medical (2) Difficulty falling asleep at night until composition floor setter hours: Code(s): G47.00 - Insomnia, unspecified Category: Medical (3) Bruxism (teeth grinding): Code(s): F45.8 - Other somatoform disorders Category: Medical (4) Abnormal heart rate: Code(s): R00.9 - Unspecified abnormalities of heart beat Category: Medical (5) Constipation: Code(s): K59.00 - Constipation, unspecified Category: Medical Qualifiers: Constipation type: drug induced constipation Qualified Code(s): K59.03 - Drug induced constipation (6) Benign essential tremor: Comment: R>L will monitor Code(s): G25.0 - Essential tremor Category: Medical Plan HST reviewed with pt. will send her for psg in lab, desaturation of o2 due to possible removing of pulse oximeter at night. Will evaluate NICKY with PSG in lab. Tremor R>L upper extremity. will monitor and r/o cts with EMG / NCS if bothersome in the future. Labs reviewed with pt. Reviewed Xray lumbar spine, cervical spine and ED note negative for L. Lower ext DVT. Difficulty falling asleep discussed strategies to induce sleep onset, and sleep hygiene. Encouraged patient to stop benadryl otc, dries her eyes, and causes tearing and use prn though she now has tramadol 50-100mg po daily prn pain. Constiptation continue sennokot tea, stool softener, psylium husk or metamucil of choice laxative or stool softener for stiff stools. Continue Melatonin 3mg -6mg po daily at night 3 hours prior to sleep, stop ambien if not effective. F/u in 3 months Orders: Orders RT PSG in-lab sleep study 02/17/25 G47.19 - Other hypersomnia, G47.34 - Idiopathic sleep related nonobstructive alveolar hypoventilation Medications: New senna leaf-herbal no.324 1,400 mg- 1,100 mg (Senokot-Chamomile) 250 mL PO .prn 20 ea 0RF constipation 2 weeks MDD 1100mg K59.00 - Constipation, unspecified Patient Instructions: Sleep Hygiene provided: set a scheduled bedtime and wake time to help regulate the circadian rhythm and balance the release of pituitary hormones. Sleep in a dark room, temperatures below 68 degrees, and no devices n bed. Limit caffeinated products 6 hours prior to bed, and limit fluids 2-4 hours prior to bed. Gentle night yoga, diffusing essential oils, and playing soft music can be relaxing. Coding Level of Care Code Est Pt Level 4 (71605) Diagnoses Excessive daytime sleepiness G47.19 Difficulty falling asleep at night until composition floor setter hours G47.00 Bruxism (teeth grinding) F45.8 Abnormal heart rate R00.9 Drug-induced constipation K59.03 Constipation type: drug induced constipation Benign essential tremor G25.0
[2025-02-17 10:33] VITALS: BP 120/76; PULSE 88; O2SAT 95
--- OUTSIDE RECORDS SUMMARY | 2025-02-17 11:45 | XMS_ITS | Data Portability ---
Author Organization NELY SEGURA , autoContract - [facility] Address [address], [address] [address] Assessment Encounter Date Assessment Date Assessment LastModified by Organization Details LastModified Time 12/05/2024 12/05/2024 DATE OF SURGERY: 12/23/24 ADMITTING DIAGNOSIS: Osteoarthritis LEFT knee REASON FOR ADMISSION: Left total knee arthroplasty SURGEON: Dr. Cadet HISTORY: The patient presents today at the request of their surgeon for a preoperative history and physical examination, with the goal of risk assessment and medical optimization prior to surgery. This is a 64-year-old female who complains of knee pain related to osteoarthritis. The patient has failed conservative measures, their joint pain is having a significant impact on their daily activities and joint replacement is now planned. PAST MEDICAL HISTORY: Osteoarthritis Left Knee Right knee meniscus tear Osteoporosis Hyperlipidemia Mild constipation GERD Hypothyroid Low back pain for the past couple of months with intermittent sciatica. She has been using tylenol, meloxicam and has been seeing a chiropractor. Thinks this may have been exacerbated by moving boxes. PAST SURGICAL HISTORY: Left Knee arthroscopy Breast Biopsy colonoscopy Urethral sling Patient denies previous surgical or anesthetic complications, Difficulties with intubation or Family history of anesthesia problems. PERTINENANT FAMILY HISTORY: None MEDICATIONS: Levothyroxine 25 mcg daily in am Meloxicam 15 mg daily - will try Celebrex in its place Risedronate once a week Saturdays Omeprazole 20 mg daily PRN Atorvastatin 10 mg daily pm Zolpidem 5 mg daily at bedtime PRN, not every night valacyclovir 1 gm prn cold sores Cetirizine 10 mg daily fluticasone nasal spray daily Aspirin 81 mg daily - will hold in anticipation of surgery Tylenol TID ALLERGIES: NKDA SOCIAL HISTORY: Tobacco: none Alcohol: occassional, 2 per week Other substance use: none REVIEW OF SYSTEMS Constitutional: No weight change, No fever, No chills, No night sweats HEENT / DENTAL: no changes in vision, hearing: no changes, no dental concerns Cardiovascular: No chest pain, No palpitations, No dyspnea on exertion, No peripheral edema, Respiratory: No shortness of breath, No cough, No sputum production. Gastrointestinal: No nausea, No vomiting, No Heartburn, No dysphagia, No diarrhea, No abdominal pain, No Black stools or rectal bleeding Genitourinary: No urinary changes Neurologic: No headache, -dizziness, - vertigo Musculoskeletal: No back pain, No Neck pain, + joint pain Psychiatric: No mood complaints Skin: No rash or open wounds PHYSICAL EXAM GENERAL: No acute distress, alert. SKIN: Warm, no rashes. HEENT: Supple, no masses. Conjunctiva clear, PERRL. No nasal discharge, hearing intact. Airway: Note Mallampati class II LUNGS: Non l abored respirations. Lungs CTA b/L CARDIOVASCULAR: Regular rhythm, no edema. No R/G/M MUSCULOSKELETAL: Antalgic Gait, knee ROM R 0-120 , L 0-120 NEUROLOGIC: CN II X II intact. DIAGNOSTIC STUDIES: Orthopedic X-ray: End stage knee osteoarthritis EKG 12/02/24 [facility] LABORATORY DATA: 12/02/24 [facility] CBC, BMP, A1C, Coags WNL ASSESSMENT AND PLAN: The patient has end stage osteoarthritis of the left knee and is now scheduled for left knee replacement surgery. This patient has no absolute medical contraindication to proceeding with surgery. See Below for Assessment and Recommendations. Specific Anesthesia Concerns: NONE The patient is an ASA Class: II Surgical Procedural Risk: Intermediate CARDIAC EVALUATION: The patient is at Low Cardiac Ischemic Risk of Complications. This meets ACC/AHA guidelines for proceeding to non-cardiac surgery without additional testing. Ischemic Cardiac Risk: - GSCRI Score: 0.2% - FUNCTIONAL CAPACITY: Good - Patient can perform > 6 Mets without cardio-pulmonary complaints. She can walk several blocks, has been packing and moving boxes recently. Mostly limited due to knee and back pain. Hypertension: NONE PULMONARY EVALUATION: LowRisk - ARISCAT Score: 3 points - Airway: Mallampati Score - The patient has the following intrinsic pulmonary disease: None - Post Operative Recommendations: Early mobilization, Incentive spirometry, Pulmonary toilet, Pain control with Epidurals or nerve blocks if possible. - NICKY risk STOP BANG Score 3 : Intermediate Risk NICKY HEMATOLOGIC EVALUATION - Surgical Bleeding Risk: Average - Patient Bleeding Risk: Average VTE Prophylaxis/Thromb otic risk: - Joint Replacement Surgery is elevated thrombotic risk - VTE Prophylaxis Recommendations: 4 weeks of post operative Chemical prophylaxis with: Aspirin ENDOCRINE EVALUATION: No Concerns - Hypothyroid - patient was instructed to take her levothyroxine the a.m. of surgery. RENAL RISK: Low HEPATIC RISK: Low BACK PAIN: The patient has recently been packing up her mothers house, moving boxes and doing a lot of cleaning. This may have been a precipitating factor. She is already using NSAIDs, tylenol and seeing a chiropractor. She is interested in switching from meloxicam to celebrex. She has a knee PT appointment today. She may give her some home streches and exercises to do for her back, if not, the ortho team may want to send her for specific spine PT exercises. We discussed the possibility of adding a muscle relaxer prn to her routine as well. She was counseled on not taking this at the same time as her sleep aid. MEDICATION RECOMMENDATION Summary: Medications to be taken the morning of surgery: Levothyroxine Special Medication Recommendations: NONE SUMMARY Magy/Post Op Medication Recommendations: IV TXA Intraoperatively ASA DVT prophylaxis for 4 weeks post operatively Patients own PPI for GI protection while on A/C Colace for constipation prophylaxis Celebrex for post op inflammation Narcotics: Tramadol, Oxycodone DISCHARGE DISPOSITION: Home with services, overnight stay POST OP PRESCRIPTIONS PROVIDED BY SURGICAL TEAM UPON DISCHARGE: Tramadol Oxycodone ASA The patient has omeprazole, bowel rx, Celebrex POST OP CONTACT: Trent [phone] Thank you for referring your patient to [facility] for preoperative risk assessment. Please do not hesitate to reach out should you have any questions or if we can be of further service to you or your patients. Warm regards, Janet Barron, CANDIDA Total time spent: 62 minutes today reviewing the chart/medical records, speaking with the patient, formulating and discussing the treatment plan answering questions, and documenting the findings and encounter. [email or web address] Not available 12/05/2024 17:23:58 Plan of Treatment Reminders Order Date Submit Date Provider Last Modified By Organization Details Last Modified Time Details Appointments None record ed. Lab None record ed. Referral None record ed. Procedures None record ed. Surgeries None record ed. Imaging None record ed. Medication Orders None record ed. Patient TargetsNo targets recorded. Patient InstructionsNo instructions recorded. Reason for Referral None Reported. Medical Equipment None Reported. Medications Name Sig Start Date Stop Date Status Note LastModified by Organization Details LastModified Time atorvastatin 10 mg tablet TAKE 1 TABLET BY MOUTH 1 TIME EACH DAY. active Not Available Not Available No t Available valacyclovir 1 gram tablet TAKE 2 TABLETS BY MOUTH TWICE A DAY FOR ONE DAY ONLY. active Not Available Not Available No t Available meloxicam 15 mg tablet TAKE 1 TABLET BY MOUTH ONCE DAILY AFTER A MEAL. active Not Available Not Available No t Available doxycycline monohydrate 100 mg tablet TAKE 1 TABLET BY MOUTH TWICE A DAY FOR 10 DAYS active Not Available Not Available No t Available levothyroxine 25 mcg tablet TAKE 1 & 1/2 TABLETS BY MOUTH 1 (ONE) TIME EACH DAY BEFORE BREAKFAST . active Not Available Not Available No t Available ferrous sulfate 325 mg (65 mg iron) tablet TAKE 1 TABLET BY MOUTH DAILY FOR ANEMIA FOR 3 MONTHS. TAKE EVERY OTHER DAY WITH ORANGE JUICE active Not Available Not Available No t Available omeprazole 20 mg capsule,delaye d release TAKE 1 CAPSULE BY MOUTH 1 TIME EACH DAY. active Not Available Not Available No t Available zolpidem 5 mg tablet TAKE 1 TABLET BY MOUTH EVERY DAY AT BEDTIME NEEDED FOR INSOMNIA active Not Available Not Available No t Available risedronate 35 mg tablet TAKE 1 TABLET BY MOUTH EVERY 7 DAYS. active Not Available Not Available No t Available Vitals Date Recorded Heart rate Oxygen saturation Oxygen saturation in Arterial blood by Pulse oximetry Body temperature Body weight Body mass index (BMI) Body height Systolic And Diastolic Provider Name and Address Organization Details Last Updated DateTime 5 81 /min 98 % 98 % 97.1 [degF] 41935.8 1 g 28.5 kg/m2 170.18 cm 120/80 mm[Hg] Unique Garciaabram YoungTERESA CHANO 5 08:08:41 Social History None recorded. Functional Status None recorded. Mental Status None recorded. Family History Nothing Reported. Medical History No medical history recorded. Gynecological HistoryNo gynecological history recorded. Obstetrics History GPAL:G 0 P 0 0 0 0 Past Encounters Encounter ID Performer Location Encounter Start Date Encounter Closed Date Diagnosis/Indication Diagnosis SNOMED-CT Code Diagnosis ICD10 Code Diagnosis IMO Codes Diagnosis Note 222 FAVIOLA BROWN-C [facility] [address] [place] [address] 12/05/2024 07:53:03 12/05/2024 09:04:55 Preprocedural examination done 1628058016 85455 Z01.818 [id number] Osteoarthr itis of left knee joint 8890483246 82746 M17.12 [id number] Primary hypothyroidism 58465767 E03.9 85413 Acute low back pain 2788 30115 M54.50 [id number] Health Concerns Section Related Observation LastModified by Organization Detai ls LastModified Time None Recorded Concern Status LastModified by Organization Details LastModified Time None Recorded Advance Directives Directive None Recorded Payers Insurance Date Sequence Insurance Name Policy Number Policy Nunez Covered Member ID Nunez Member ID Guarantor Name 12/06/2024 1 [employer] (MEDICARE REPLACEMENT/ ADVANTAGE - PPO) [id number] Bernice Ruiz [id number] Bernice Ruiz Notes Date Note Type Note Provider Name and Address Organization Details Recorded Time 12/05/2024 text/html Preop HPIReporte d by Patient Patient presents today for pre-operative evaluation. ADELSO BROWN [address], [place], [address], [facility] - JANET BARRON 12/05/2024 17:24:10 OBGyn Episode No OBEpisode recorded.
--- OUTSIDE RECORDS SUMMARY | 2025-02-17 11:45 | XMS_ITS | Encounter Summary ---
Author Organization [facility] Address [address] [place] [address] Care Team Providers Care Instructor Military Science Name Role Phone Mahogany Molina MD Primary Care Provider [phone] Encounter Details Date Type Department Care Team (Late st Contact Info) Description 02/05/2025 Results Follow-Up Adult Medicine [facility] [address], [place] [phone] Virginia Montiel PA [address], [place] Social History Tobacco Use Types Packs/Day Years [...] for your loved ones. For example, child nutrition director or elderly care for an older adult? [...] 8:30 AM EST Office Visit Adult Medicine [address] [phone] Bre Bruce PA [address] [place] [address] 08/14/2025 9:00 AM EDT Office Visit Endocrinology [address] [place] [address] Angy Solitario MD [address], [place] documented as of this encounter Visit Diagnoses Not on filedocumented in this encounter Additional Health Concerns Assessment Noted Time PHQ-9 Depression Total Score: 0 06/25/19 10:40 AM EST A fall risk assessment has been complete d for the patient 04/22/2024 11:20 AM EST documented as of this encounter Care Teams Instructor Military Science Relationship Specialty Start Date End Date Mahogany Molina MD [address] [place] [address] PCP - General 07/25/99 documented as of this encounter
--- OUTSIDE RECORDS SUMMARY | 2025-02-17 11:45 | XMS_ITS | Clinical Summary ---
Author Organization [facility] Address [address] [place] [address] Phone Care Team Providers Care Radio Announcer Name Role Phone Mahogany Molina MD Primary Care Provider Allergies No known active allergies Medications aspirin 81 mg EC tablet Take 1 tablet (81 mg total) by mouth 1 (one) time each day. Active calcium carbonate-vitam in D3 600 mg-10 mcg (400 unit) capsule Take by mouth 1 (one) time each day. Active cetirizine (ZyrTEC) 10 mg tablet Take 1 tablet (10 mg total) by mouth 1 (one) time each day. Active fluticasone propionate (FLONASE) 50 mcg/actuation nasal spray Administer 1 spray into each nostril 2 (two) times a day if needed for rhinitis or allergies. 06/21/19 22 Active glucosamine/cho ndroitin/C/Juwan (GLUCOSAMINE 1500 COMPLEX ORAL) Take 1 tablet by mouth 1 (one) time each day. Active MAGNESIUM ORAL Take by mouth 1 (one) time each day. Active multivitamin (MULTIPLE VITAMINS ORAL) Take by mouth 1 (one) time each day. 07/26/19 08 Active omega-3 acid ethyl esters (LOVAZA) 1 gram capsule Take 1 capsule (1 g total) by mouth 1 (one) time each day. Active Lactobacillus acidophilus (Probiotic) 10 billion cell capsule Take by mouth 1 (one) time each day. Active atorvastatin (LIPITOR) 10 mg tablet Take 1 tablet (10 mg total) by mouth 1 (one) time each day. 90 tablet 3 04/22/19 25 Active levothyroxine (SYNTHROID, LEVOTHROID) 25 mcg tablet Take 1.5 tablets (37.5 mcg total) by mouth 1 (one) time each day before breakfast. 135 tablet 3 04/22/19 25 Active omeprazole (PriLOSEC) [address] capsule Take 1 capsule (20 mg total) by mouth 1 (one) time each day. 90 capsule 3 04/22/19 25 Active risedronate (ACTONEL) 35 mg tablet Take 35 mg by mouth every 7 (seven) days. 12 tablet 1 10/28/19 25 Active valACYclovir (VALTREX) 1 gram tablet 2 tabs bid for 1 day only 4 tablet 5 10/28/19 25 Active diazePAM (VALIUM) 2 mg tablet 02/03/20 25 Active traMADoL (ULTRAM) 50 mg tablet TAKE 1-2 TABLETS BY MOUTH EVERY 6 HOURS NEEDED SEVERE PAIN 01/25/20 25 Active senna (SENOKOT) 8.6 mg tablet Take 1 tablet (8.6 mg total) by mouth. 12/25/19 25 Active meloxicam (MOBIC) 15 mg tablet Take 1 tablet (15 mg total) by mouth 1 (one) time each day. Active vitamin B complex (VITAMINS B COMPLEX ORAL) Take by mouth 1 (one) time each day. 025 Discontinued ferrous sulfate 325 mg (65 mg iron) EC tablet Take 1 tablet (325 mg total) by mouth 3 (three) times a day with meals. Do not crush, chew, or split. 025 Discontinued celecoxib (CeleBREX) 200 mg capsule Take 1 capsule (200 mg total) by mouth 1 (one) time each day. 12/15/19 25 025 Discontinued baclofen (LIORESAL) 10 mg tablet Take 1 tablet (10 mg total) by mouth at bedtime. 025 Discontinued Active Problems Problem Noted Date Diagnosed Date [...] Encounters Date Type Department Care Team Description 02/16/2025 8:15 AM EDT Lab Draw Station - [address] Osteoporosis, unspecified osteoporosis type, unspecified pathological fracture presence 02/13/2025 3:30 PM EDT Consult Endocrinology - [address] [phone] Angy Solitario MD Osteoporosis, unspecified osteoporosis type, unspecified pathological fracture presence 02/05/2025 Results Follow-Up Adult Medicine [address] [phone] Virginia Montiel PA 02/03/2025 3:30 PM EDT Office Visit Adult Medicine [address] [phone] Virginia Monteil PA Osteoporosis, unspecified osteoporosis type, unspecified pathological fracture presence (Primary Dx); Gastroesophageal reflux disease, unspecified whether esophagitis present; NSAID long-term use 12/14/2024 4:15 PM EDT Office Visit Adult [address] [phone] Mahogany Molina MD Acute left-sided low back pain with left-sided sciatica (Primary Dx); Osteoporosis, unspecified osteoporosis type, unspecified pathological fracture presence; Hypercholesteremia; Mild intermittent asthma without complication from Last 3 Months Immunizations Immunization Administration Dates Next Due Influenza Quadravalent, MDCK , 0.5ml, preservative free (Flucelvax) 6mo and older 01/10/2019,01/15/2018,01/18/2017 Influenza trivalent, 0.5mL ( Fluad) 65yo and older 01/25/2025 Influenza trivalent, 0.5mL, preservative free (Fluarix; FluLaval; Fluzone) ages 6mo and older (Afluria) 3 years and older 12/30/2023,02/04/2022,01/15/2018,01/25 Influenza trivalent, with pr eservative (Fluzone; Afluria) 6mo and older 01/19/2023,01/03/2020,01/17/2015,12/31,01/27/2007 [employer] SARS-CoV-2 COVID-19, mRNA, LNP-S, preservative free 07/25/2021 [...] Record ed Within the last 3 months, main johansen many times did you visit the emergency [...] for your loved ones. For example, child development professor or elderly care for an older adult? [...] 40w 0d Vag-S pont None [place] [place] Vital Signs Vital Sign Reading Time Taken Comments Blood Pressure 109/68 02/13/2025 3:25 PM EDT Pulse 84 02/13/2025 3:25 PM EDT Temperature 36.4 C (97.5 F) 02/03/2025 3:40 PM EDT Respiratory Rate 13 02/13/2025 3:25 PM EDT Oxygen Saturation 98% 12/14/2024 4:03 PM EDT Inhaled Oxygen Concentration - - Weight 82.1 kg (181 lb) 02/13/2025 3:25 PM EDT Height 170.2 cm (5' 7 ) 02/13/2025 3:25 PM EDT Body Mass Index 28.35 02/13/2025 3:25 PM EDT Plan of Treatment Upcoming Encounters Date Type Department Care Team (Late st Contact Info) Description 05/01/2025 8:30 AM EST Office Visit Adult Medicine East - [address] [phone] Bre Bruce PA [address] [place] [phone] 08/14/2025 9:00 AM EDT Office Visit Endocrinology - [address] [phone] Angy Solitario MD [address] [place] [address] Health Maintenance Due Date Last Done Comments Medicare Annual Wellness Visit 04/22/2025 04/22/2024 Breast Cancer Screening 04/29/2025 04/29/19, 04/27/2023, 03/25/2022, Additional history exists Social Influencers of Health Screening 06/24/2025 06/24/2024 Falls Risk Assessment 02/03/2026 02/03/2025, 025 DTaP,Tdap,and Td Vaccines (4 - Td or [...] Pneumococcal Vaccine: 50+ Years Completed 04/16/2024, 12/26/2015 COVID-19 Vaccine Completed 01/25/2025, , 01/07/2023, Additional history exists Influenza Vaccine Completed 01/25/2025, , 01/19/2023, Additional history exists Depression Screening Completed 01/31/2025 HIB Vaccines Aged Out No longer eligi [...] unspecified osteoporosis type, unspecified pathological fracture presence VITAMIN D 25 HYDROXY Routine 02/03/2025 4:20 PM EDT Osteoporosis, unspecified osteoporosis type, unspecified pathological fracture presence BD BONE DENSITY DXA AXIAL SKELETON Routine 05/10/2024 9:09 AM EST Osteoporosis, unspecified osteoporosis type, unspecified pathological fracture presence MG MAMMO DIGITAL SCREENING W TONY BILAT Routine 04/29/2024 9:01 AM EST Encounter for screening mammogram for breast cancer LIPID PANEL WITH REFLEX TO DIRECT LDL Routine 04/26/2024 7:50 AM EST Hypercholesteremia EXTERNAL COLONOSCOPY REPORT Routine 03/20/2022 1:37 PM EST from Last 3 Months or Most Recently Relevant to Health Maintenance Results * Comprehensive metabolic panel (02/16/2025 8:26 AM EDT) Sodium 138 133 - 145 mmol/L LAB CHEMISTRY METHOD 02/16/2025 1:12 PM [facility] Potassium 4.6 3.5 - 5.5 mmol/L LAB CHEMISTRY METHOD 02/16/2025 1:12 PM [facility] Chloride 106 96 - 110 mmol/L LAB CHEMISTRY METHOD 02/16/2025 1:12 PM [facility] CO2 27 21 - 32 mmol/L LAB CHEMISTRY METHOD 02/16/2025 1:12 PM [facility] Anion Gap 5 3 - 11 LAB CHEMISTRY METHOD 02/16/2025 1:12 PM [facility] Glucose 94 70 - 100 mg/dL LAB CHEMISTRY METHOD 02/16/2025 1:12 PM [facility] BUN 21 5 - 25 mg/dL LAB CHEMISTRY METHOD 02/16/2025 1:12 PM [facility] Creatinine 0.77 0.50 - 1.10 mg/dL LAB CHEMISTRY METHOD 02/16/2025 1:12 PM [facility] eGFR 85 >=60 mL/min/1. 73m2 LAB CHEMISTRY METHOD 02/16/2025 1:12 PM [facility] Comment:Calculation based on the Chronic Kidney Disease Epidemiology Collaboration (CKD-EPI) equation refit without adjustment for race. BUN/Creatinine Ratio 27.3 LAB CHEMISTRY METHOD 02/16/2025 1:12 PM [facility] Calcium 9.3 8.5 - 10.5 mg/dL LAB CHEMISTRY METHOD 02/16/2025 1:12 PM [facility] AST (SGOT) 30 10 - 42 unit/L LAB CHEMISTRY METHOD 02/16/2025 1:12 PM EDT [facility] ALT (SGPT) 56 10 - 60 unit/L LAB CHEMISTRY METHOD 02/16/2025 1:12 PM EDT [facility] Alkaline Phosphatase 96 42 - 121 unit/L LAB CHEMISTRY METHOD 02/16/2025 1:12 PM EDT [facility] Total Protein 7.1 6.0 - 8.0 g/dL LAB CHEMISTRY METHOD 02/16/2025 1:12 PM EDT [facility] Albumin 3.8 3.2 - 5.0 g/dL LAB CHEMISTRY METHOD 02/16/2025 1:12 PM EDT [facility] Total Bilirubin 0.6 0.0 - 1.4 mg/dL LAB CHEMISTRY METHOD 02/16/2025 1:12 PM EDT [facility] Blood Venous blood specimen / Unknown Venipuncture / Unknown 02/16/2025 8:26 AM EDT 02/16/2025 8:26 AM EDT us Angy Solitario MD LAB BLOOD ORDERABLES Final Result [facility] [address] [place] [address], * Vitamin D 25 hydroxy (02/03/2025 4:20 PM EDT) Vit D, 25-Hydroxy 58.2 30.0 - 80.0 ng/mL LAB CHEMISTRY METHOD 02/03/2025 8:14 PM EDT [facility] Blood Venous blood specimen / Unknown Venipuncture / Unknown 02/03/2025 4:20 PM EDT 02/03/2025 4:20 PM EDT us Virginia RAMIREZ LAB BLOOD ORDERABLES Final Re sult [facility] [address] [place] [address], * BD Bone Density DXA Axial Skeleton (05/10/2024 9:09 AM EST) Anatomical Region Laterality Modality Wrist, Hip, L-spine Bone Densito metry 05/11/2024 12:0 4 PM EST Impressions 05/11/2024 12:05 PM EST 1. Osteopenia. 2. FRAX analysis yields a 10-year probability of major osteoporotic fracture of 18.7% and a 10-year probability of hip fracture of 1.5%. Code 64252 -------- FINAL REPORT -------- Dictated By: Herb Iniguez Dictated Date: 05/11/2024 12:04 ET Assigned Physician: Herb Iniguez Reviewed and Electronically Signed By: Herb Iniguez Signed Date: 05/11/2024 12:05 ET Workstation ID: [id number] Transcribed By: Self Edit Transcribed Date: 05/11/2024 [...] density of the femurs bilaterally is 0.857 gm/[id number] is 85% of that of young normals and 93% of that of age matchedcontrols. This yields a T-score of -1.2 and a Z-score of -0.5 which isdiagnostic of osteopenia. IMPRESSION: 1. Osteopenia. 2. FRAX analysis yields a 10-year probability of major osteoporoticfracture of 18.7% and a 10-year probability of hip fracture of 1.5%. Code 87823 -------- FINAL REPORT -------- Dictated By: Herb Iniguez Dictated Date: 05/11/2024 12:04 ET Assigned Physician: Herb Iniguez Reviewed and Electronically Signed By: Herb Iniguez Signed Date: 05/11/2024 12:05 ET Workstation ID: [id number] Transcribed By: Self Edit Transcribed Date: 05/11/2024 12:04 ET Mahogany Molina MD IM DXA PROCEDURES Final Result * MG Mammo [...] for biopsy. PQRI CPT II 3342F Code 00182, 06821 PQRI 225 CPT II 7025F TISSUE DENSITY: There are scattered areas of fibroglandular density. (BI-RADS category B) IMPRESSION: Benign. BI-RADS CATEGORY: 2 - BENIGN RECOMMENDATION: Screening bilateral mammogram is recommended in 1 year. Mammo Location: [facility], [address] [place] [address] -------- FINAL REPORT -------- Dictated By: Herb Iniguez Dictated Date: 04/29/2024 09:13 ET Assigned Physician: Herb Iniguez Reviewed and Electronically Signed By: Herb Iniguez Signed Date: 04/29/2024 09:18 ET Workstation ID: [id number] Transcribed By: Self Edit Transcribed Date: 04/29/2024 09:13 ET Narrative 04/29/2024 9:18 AM EST CLINICAL: The patient is a 64 years Female presenting for routine screening mammography. COMPARISON: Most recently 04/27/2023 and most remotely 03/11/2017. TECHNIQUE: Full-field digital mammography of the breasts bilaterally consisting of tomosynthesis in MLO and CC projection is performed in the [employer] 2000-D unit. Computer aided detection utilizing the [employer] Optical[employer] system was utilized. FINDINGS: The breasts are [...] MLO and CC projection is performed in the[employer] 2000-D unit. Computer aided detection utilizing the Lambda OpticalSystemsDsystem was utilized. FINDINGS: The breasts are again [...] for biopsy. PQRI CPT II 3342F Code 00783, 95532 PQRI 225 CPT II 7025F TISSUE DENSITY: There are scattered areas of fibroglandular density.(BI-RADS category B) IMPRESSION: Benign. BI-RADS CATEGORY: 2 - BENIGN RECOMMENDATION: Screening bilateral mammogram is recommended in 1 year. Mammo Location: [facility], [address] [place] [id number] -------- FINAL REPORT -------- Dictated By: Herb Iniguez Dictated Date: 04/29/2024 09:13 ET Assigned Physician: Herb Iniguez Reviewed and Electronically Signed By: Herb Iniguez Signed Date: 04/29/2024 09:18 ET Workstation ID: [id number] Transcribed By: Self Edit Transcribed Date: 04/29/2024 09:13 ET us Self Referral Sppl IMG BI PROCEDURES Final Resul t * (ABNORMAL) Lipid panel with reflex to direct LDL (04/26/2024 7:50 AM EST) Cholesterol 212(H) 0 - 200 mg/dL LAB CHEMISTRY METHOD 04/26/2024 10:34 AM EST [facility] Triglycerides 103 0 - 150 mg/dL LAB CHEMISTRY METHOD 04/26/2024 10:34 AM EST [facility] HDL 66 >=40 mg/dL LAB CHEMISTRY METHOD 04/26/2024 10:34 AM EST [facility] LDL Calculated 125(H) 0 - 100 mg/dL LAB CHEMISTRY METHOD 04/26/2024 10:34 AM EST [facility] VLDL Cholesterol Seng 20.6 mg/dL LAB CHEMISTRY METHOD 04/26/2024 10:34 AM EST [facility] Non HDL Chol. (LDL+VLDL) 146(H) <145 mg/dL LAB CHEMISTRY METHOD 04/26/2024 10:34 AM EST [facility] Chol/HDL Ratio 3.2 0.0 - 4.4 LAB CHEMISTRY METHOD 04/26/2024 10:34 AM EST [facility]) [facility] Blood Venous blood specimen / Unknown Venipuncture / Unknown 04/26/2024 7:50 AM EST 04/26/2024 7:50 AM EST Mahogany Molina MD LAB BLOOD ORDERABLES Final Resul t [facility] ([facility]) [facility] [address] [place] [address], * External Colonoscopy Report (03/20/2022 1:37 PM EST) Anatomical Region Laterality Modality Endoscopy Historical Provider GI~PROCEDURE ORDERABLES F inal Result from Last 3 Months or Most Recently Relevant to Health Maintenance Insurance [employer] MED[employer]AGE Care Teams Radio Announcer Relationship Specialty Start Date End Date Mahogany Molina MD [address] [place] [phone] PCP - General 07/25/99
== END 2025-02-17 11:46 | disposition home or self-care (01) ==
LOC: HO.HSMS 10:23
PROVIDERS: PCP Internal Medicine; Visit Provider Physician Assistant Medical
DX: G47.19 Other hypersomnia (principal); G47.00 Insomnia, unspecified; F45.8 Other somatoform disorders; R00.9 Unspecified abnormalities of heart beat; K59.03 Drug induced constipation; G25.0 Essential tremor
CPT/HCPCS: 99214

== ENCOUNTER → 2025-02-17 10:22 | Outpatient (BNVA) | payer MEDICARE, SELFPAY | PROVIDERS: PCP Internal Medicine; Visit Provider Physician Assistant Medical | DX: G25.0 Essential tremor (principal); K59.03 Drug induced constipation; G47.19 Other hypersomnia; G47.00 Insomnia, unspecified; R00.9 Unspecified abnormalities of heart beat | CPT/HCPCS: 99212 ==